=== PATIENT | male | born 1930 | race Caucasian/White ===

== ENCOUNTER 2018-01-08 09:45 | Inpatient (IN) | payer MEDICARE ==
--- NOTE | 2018-01-04 11:19 | HP ---
HISTORY OF PRESENT ILLNESS: Wyatt Bettencourt is an 87-year-old male patient who lives alone. He is ambula tory with a walker. He is known to have a cardiomyopathy with a 25% ejection fraction. He is on Rehana bo. He is followed by Dr. Fede Sherman, Cardiology. Dr. Fede Sherman saw him just 4-5 weeks ago. I personally talked to Dr. Fede Sherman and patient is cleared for surgery without additional cardiac e valuation for repair of his left inguinal hernia repair with mesh. The patient has had 2 prior lapar otomies. The plan is due to his poor mobility, the patient is planned to be admitted postoperatively and may transition arrangements for him to stay in a swing bed in [place] to help him with his mobi lity and convalescence after his left inguinal hernia repair. The patient understands risks and bene fits of procedure, infection, bleeding, reoperation and consents. He has recently acquired this geoffrey ia and it is bothersome to him. He desires repair. He will hold his Eliquis for 3 days prior and re sume it 2 days afterwards. MEDICATIONS: Eliquis 2.5 mg b.i.d., aspirin 81 mg a day, carvedilol 12.5 mg 1/2 orally twice a day, benazepril 5 mg a day, furosemide 40 mg a day, Klor-Con 8 mEq a day, digoxin 0.125 mg a day, atorvast atin 40 mg a day, Co-Q10 daily, finasteride 5 mg a day, multivitamins daily, acetaminophen as needed. PAST MEDICAL HISTORY: Hypertension, gastroesophageal reflux disease, dyslipidemia, BPH followed Dr. Haji, osteoporosis, history of cardiomyopathy with a 25% ejection fraction. Cardiology discussion as above. He has had a coronary stent, but no evidence of ischemic disease and is cleared by Cardiol ogy for the procedure. Environmental allergies. PAST SURGICAL HISTORY: TURP, cardiac stent, left hip ORIF. 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 He had a subsequent laparotomy for a bowel resection, probably from obstructive process. Subsequently, he has an incisi onal hernia about the midline laparotomy scar between the umbilicus and xiphoid. FAMILY HISTORY: Father 76 years of age, coronary disease. Mother of breast cancer. REVIEW OF SYSTEMS: Ten point noncontributory. The patient is followed by Dr. Eisenberg, primary care and Dr. Fede Sherman, Cardiology He is on Eli is. PHYSICAL EXAMINATION: VITAL SIGNS: Weight 178 pounds, 68 inches, 167/70, heart rate 65, 98.3 degrees. HEENT: Unremarkable. LUNGS: Clear to auscultation. No wheezing. CARDIAC: No murmur. ABDOMEN: Soft, nondistended. EXTREMITIES: Unremarkable. : Testicles normal. On standing right groin without hernia. Left inguinal hernia present on Vals steven and on standing. ASSESSMENT AND PLAN: 1. Left inguinal hernia, symptomatic. Desires repair. We will plan repair using mesh. We will adm it him postoperatively for arrangement to transfer, transition to a swing bed in [place]. The patie nt understands risks, benefits, and consents. 2. Other medical problems as noted above. .
[2018-01-05 10:23] VITALS: BMI 25.4
[2018-01-08 10:42] LABS: #Basophils 0.1 thou/uL (0.0-0.2); #Eosinphils 0.1 thou/uL (0.0-0.7); #Lymphocytes 2.8 thou/uL (1.20-3.40); #Neutrophils 6.7 thou/uL (1.40-6.50); %Basophils 0.7 % (0.0-1.0); %Eosinophils 0.9 % (0.0-10.0); %Lymphocytes 25.9 % (21.0-51.0); %Monocytes 9.7 % (0.0-10.0); %Neutrophils 62.8 % (42.0-75.0); Hemoglobin 15.9 g/dL (14.0-18.0); Mean Corpuscular HGB CONC 32.9 g/dL (32.0-36.0); Mean Corpuscular Hemoglobin 32.4 pg (27.0-31.0); Mean Corpuscular Volume 98.6 fl (80.0-94.0); Mean Platelet Volume 7.7 fL (7.4-10.4); Platelet Count 287 thou/uL (130-400); RBC Distribution Width 12.2 % (11.5-14.5); Red Blood Cell (RBC) Count 4.92 mill/uL (4.70-6.10); White Blood Cell (WBC) Count 10.6 thou/uL (4.8-10.8)
--- NOTE | 2018-01-08 10:49 | RAD ---
PA AND LATERAL CHEST: History: Pre-operative evaluation. FINDINGS: The heart size is normal. The aorta is tortuous. The lungs are expanded without lobar consolidation, pneumothoraces, or pleural effusions. There are changes of degenerative changes in the spine. IMPRESSION: NO acute process. POS: [facility]
[2018-01-08 11:00] LABS: Anion Gap 12 mmol/L (10-20); BUN (Urea Nitrogen) 29 mg/dL (8.4-25.7); Calc. Creatinine Clearance 47 mL/min (70-130); Calcium 10.1 mg/dL (7.8-10.44); Carbon Dioxide 29 mmol/L (23-31); Chloride 102 mmol/L (98-107); Estimated GFR-MDRD 54; Glucose 109 mg/dL (83-110); Potassium 4.6 mmol/L (3.5-5.1); Sodium 138 mmol/L (136-145)
[2018-01-08] MEDS ORDERED: Ketorolac Tromethamine 30 MG/ML VIAL ONE (11:03)
[2018-01-08] MEDS ORDERED: CEFAZOLIN/Water 2 GM/20 ML SYRINGE ONE (11:03)
[2018-01-08] MEDS ORDERED: Fentanyl 100 MCG/2 ML VIAL ONE (12:03)
[2018-01-08] MEDS ORDERED: Bupivacaine HCl 0.5%/Epinephrine 1:200,000/PF 30 ml Vial ONE (12:19)
[2018-01-08] MEDS ORDERED: Lidocaine 2% 10 ML INJ ONE (12:20)
[2018-01-08] MEDS ORDERED: Dextrose 50% Abboject 50 ML SYRINGE SLOW IVP PRN ×2 (13:20→13:21)
[2018-01-08] MEDS ORDERED: Dextrose 5% in Water 1,000 ML IV PRN ×2 (13:20→13:21)
[2018-01-08] MEDS ORDERED: hydrALAZINE 20 MG/ML VIAL SLOW IVP PRN (13:21)
[2018-01-08] MEDS ORDERED: traMADol HCl 50 MG TAB PO PRN ×2 (13:23)
[2018-01-08] MEDS ORDERED: HYDROmorphone 2 MG/ML VIAL SLOW IVP PRN (13:34)
[2018-01-08] MEDS ORDERED: Promethazine HCl 25 MG/ML VIAL SLOW IVP PRN (13:34)
[2018-01-08] MEDS ORDERED: Ondansetron HCl/PF 4 MG/2 ML Vial IVP PRN (13:34)
[2018-01-08] MEDS ORDERED: Morphine Sulfate 2 MG/ML SYRINGE SLOW IVP PRN (13:34)
[2018-01-08] MEDS ORDERED: Meperidine HCl/PF 25 MG/ML VIAL SLOW IVP PRN (13:34)
--- NOTE | 2018-01-08 13:34 | OP ---
DATE OF PROCEDURE: 01/08/2018 PREOPERATIVE DIAGNOSES: Left inguinal hernia, cardiomyopathy. POSTOPERATIVE DIAGNOSES: Left inguinal hernia, cardiomyopathy. PROCEDURE: Left inguinal hernia repair, PHS mesh indirect hernia. SURGEON: Dr. Noe Garcia ANESTHESIA: Intravenous sedation, local 0.5% Marcaine with epinephrine 30 mL mixed with 2% Xylocaine , 10 mL total volume mixture used. ESTIMATED BLOOD LOSS: Less than 10 mL. FINDINGS: Indirect left inguinal hernia. PROCEDURE IN DETAIL: The patient was taken to the operating room where under intravenous sedation, a bdomen and groin clipped of hair, prepared with ChloraPrep, draped in routine fashion. Ioban was use d. Local anesthetic mixture infiltrated in the skin and subcutaneous tissue for ilioinguinal nerve b lock and incision made in left groin, carried down skin and subcutaneous tissue to the external obliq ue, identifying the external ring, incising the external oblique and the rectus fibers, opening the i nguinal canal and dissecting the cord structures free and surrounded with a [place] drain. Cremaster ic fibers taken down with the cautery. Ilioinguinal nerve identified and divided using the cautery. Hernia sac identified, dissected free, opened under direct visualization, high ligation of the herni a sac performed with 0 Nurolon suture pursestring and stump of the hernia sac excised. To the stump of the hernia sac, underlay portion of the PHS mesh secured with 0 Nurolon. Underlay portion placed in the preperitoneal space. Onlay portion placed in the inguinal canal and slit made in the mesh lat erally to accommodate the cord structures and a synthetic internal ring created approximating the mes h laterally to Poupart's ligament and mesh inferiorly to Renan's ligament. Cord structures returned to anatomic position. External oblique closed with continuous suture of 3-0 Monocryl, Camper's with continuous suture of 3-0 Monocryl, skin with subdermal 4-0 Monocryl and DermaGlue applied. Local an esthetic infiltrated in the skin and subcutaneous tissue and in the space of the inguinal canal below Camper's fascia. The patient tolerated the procedure well.
[2018-01-08] MEDS ORDERED: Lidocaine 1% PF 5 ML VIAL ONE (15:24)
[2018-01-08] MEDS ORDERED: PROPOFOL 200 MG/20 ML VIAL ONE (15:24)
[2018-01-08] MEDS ORDERED: Diabetic Tussin 200 MG/10 ML UDCUP PO PRN (15:52)
[2018-01-08] MEDS ORDERED: Loperamide HCl 2 MG CAP PO PRN (15:52)
[2018-01-08] MEDS ORDERED: Zolpidem Tartrate 5 MG TAB PO PRN (15:52)
[2018-01-08] MEDS ORDERED: Ondansetron ODT 4 MG TAB PO PRN (15:52)
[2018-01-08] MEDS ORDERED: Sodium Chloride 0.65% Nasal 44 ML BOT EA NARE PRN (15:52)
[2018-01-08] MEDS ORDERED: Ondansetron PF 4 MG/2 ML Vial IVP PRN (15:52)
[2018-01-08] MEDS ORDERED: Chloraseptic Spray 180 ml Bottle PO PRN (15:52)
[2018-01-08] MEDS ORDERED: Loratadine 10 MG TAB PO PRN (15:52)
[2018-01-08] MEDS ORDERED: Senokot 8.6 MG TAB PO PRN (15:52)
[2018-01-08] MEDS ORDERED: Artificial Tear Sol 15 ML BOT EA EYE PRN (15:52)
[2018-01-08] MEDS ORDERED: Mag-Al 1200 mg/1200 mg/30 ML UDCUP PO PRN (15:52)
[2018-01-08] MEDS ORDERED: Eucerin (Mineral Oil/Petrolatum,White) 30 gm Jar TOP PRN (15:52)
[2018-01-08] MEDS ORDERED: Milk Of Magnesia 30 ML UDCUP PO PRN (15:52)
--- NOTE | 2018-01-08 19:15 | CON ---
DATE OF CONSULTATION: 01/08/2018 PRIMARY CARE PHYSICIAN: Dr. Cassia Eisenberg. PRIMARY ATTENDING: Dr. Noe Garcia. REASON FOR CONSULTATION: Medical comanagement. HISTORY OF PRESENT ILLNESS: An 87-year-old male who has multiple medical problems including systolic heart failure, atrial fibrillation, who was electively admitted by Dr. Garcia today for repair of right inguinal hernia, which was done earlier today without any immediate complication. Postoperatively, the patient was at surgical floor and we were consulted for medical comanagement. This patient was seen and examined at bedside. He does not have any complaint. He was hungry and he was asking me for food. This patient denies any pain. He does not have any chest pain, palpitation, shortness of breath. He is on room air. He does not have any constipation, diarrhea, or abdominal distention. He denies any urinary tract infection symptoms. He denies any fever, chills, or any flu-like symptoms. He denies any orthopnea, PND or leg swelling. 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 PAST SURGICAL HISTORY: TURP, colectomy, status post left inguinal hernia repair by Dr. Garcia today, cardiac catheterization with stent placement by Dr. Sherman, left hip open reduction internal fixation. 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 Subsequently, he had laparotomy for bowel resection. PAST PSYCHIATRIC HISTORY: Reviewed and negative. FAMILY HISTORY: Father by age of 76 from heart disease. Mother from breast cancer. SOCIAL HISTORY: No history of tobacco, alcohol or drug abuse history. Lives with family. REVIEW OF SYSTEMS: The following complete review of systems was negative, unless otherwise mentioned in the HPI or below: Constitutional: Weight loss or gain, ability to conduct usual activities. Skin: Rash, itching. Eyes: Double vision, pain. ENT/Mouth: Nose bleeding, neck stiffness, pain, tenderness. Cardiovascular: Palpitations, dyspnea on exertion, orthopnea. Respiratory: Shortness of breath, wheezing, cough, hemoptysis, fever or night sweats. Gastrointestinal: Poor appetite, abdominal pain, heartburn, nausea, vomiting, constipation, or diarrhea. Genitourinary: Urgency, frequency, dysuria, nocturia. Musculoskeletal: Pain, swelling. Neurologic/Psychiatric: Anxiety, depression. Allergy/Immunologic: Skin rash, bleeding tendency. All review of systems reviewed with the patient and negative except as mentioned in the HPI. ALLERGIES: No known drug allergy. CURRENT HOME MEDICATIONS: Aspirin 81 mg p.o. daily, Eliquis 2.5 mg p.o. b.i.d. , Lipitor 40 mg p.o. at bedtime, Lotensin 5 mg p.o. daily, Coreg 6.25 mg p.o. b.i.d., digoxin 0.125 mg p.o. daily, Proscar 5 mg p.o. daily, Lasix 40 mg p.o. daily, multivitamin 1 tablet p.o. daily, potassium chloride 8 mEq p.o. daily, Coenzyme Q10 of 100 mg p.o. daily. HOSPITAL COURSE: Reviewed. PHYSICAL EXAMINATION: VITAL SIGNS: Currently, temperature 98.0, pulse 57, respiratory rate 16, saturation 99% on room air, blood pressure 151/76, weight 175 pound. GENERAL: The patient is currently alert, awake, in no obvious acute distress. HEAD: Normocephalic, atraumatic. EYES: Pupils are round, reactive to light. Extraocular muscle intact. ENT: Oropharynx within normal limits. Moist mucous membranes, no oral lesion, no pharyngeal erythema, no exudate. NECK: Supple, no JVD, no thyromegaly, no carotid bruit. LUNGS: Clear to auscultation without any rhonchi or rales. CARDIAC: S1, S2 appears irregular. No murmur, no gallop, no rub. ABDOMEN: The patient does have surgical site in left lower quadrant at hernia site, which appears clean and healthy. EXTREMITIES: No edema. Good peripheral pulsation. SKIN: No skin rash. HEMATOLOGIC: No lymphadenopathy. PSYCHIATRIC: Normal affect. SIGNIFICANT LABORATORY DATA AND IMAGING: CBC: WBC 10.6, hemoglobin 15.9, platelet 287. BMP: Sodium 138, potassium 4.6, chloride 102, carbon dioxide 29 , anion gap 12, BUN 29, creatinine 1.27, glucose 109, calcium 10.1. Chest x- ray based on my review, no acute cardiopulmonary process. Old medical record reviewed. ASSESSMENT AND PLAN: IMPRESSION: 1. Status post left inguinal hernia repair. The patient is doing very well. Diet can be started. Postoperative care as per primary team. 2. Chronic systolic heart failure. The patient is currently euvolemic. He is on room air. He does not have any orthopnea. Does not have any edema. We will continue patient's home medication with Lasix 40 mg p.o. daily, Coreg 6.25 mg p.o. b.i.d., benazepril 5 mg p.o. daily. 3. Dyslipidemia. Continue Lipitor 40 mg p.o. at bedtime. 4. Coronary artery disease. Continue aspirin 81 mg p.o. daily along with beta- michael, MAXX inhibitor and statin therapy. The patient does not have any angina at this point. 5. Atrial fibrillation, currently rate controlled. Continue Coreg 6.25 mg p.o. b.i.d., digoxin 0.125 mg p.o. daily. The patient is currently on Lovenox 40 mg subcutaneously daily, but from tomorrow if surgeon is okay, then the patient can be kept on Eliquis 2.5 mg p.o. b.i.d. for chronic anticoagulation. 6. Benign enlargement of prostate. Continue Proscar 5 mg p.o. daily. 7. Chronic kidney disease, stage 3. Monitor renal function. 8. Deep venous thrombosis prophylaxis. Patient is currently on Lovenox 40 mg subcutaneously daily. 9. Gastrointestinal prophylaxis. Pepcid 20 mg p.o. daily. 10. Code status: The patient is FULL CODE. Patient's son is surrogate decision maker. Disposition plan based on clinical course. We are expecting the patient will be discharged in the next 24-48 hours. Thank you for the consult. We will follow up with you while in hospital. HEBER
[2018-01-08] MEDS: Carvedilol 6.25 MG TAB PO SCH (20:46)
[2018-01-08] MEDS: Acetaminophen 500 MG TAB PO PRN (20:47)
[2018-01-08] MEDS: Atorvastatin Calcium 40 MG TAB PO SCH (20:47)
[2018-01-08] MEDS ORDERED: Enoxaparin Sodium 40 MG/0.4 ML SYRINGE SC SCH (21:00)
[2018-01-09] MEDS: Acetaminophen 500 MG TAB PO PRN ×3 (02:36→20:31)
--- NOTE | 2018-01-09 07:19 | EKG ---
Test Reason : PREOP Blood Pressure : / mmHG Vent. Rate : 070 BPM Atrial Rate : 117 BPM P-R Int : 000 ms QRS Dur : 130 ms QT Int : 390 ms P-R-T Axes : 000 004 216 degrees QTc Int : 421 ms Atrial fibrillation Non-specific intra-ventricular conduction block Inferior infarct , age undetermined Cannot rule out Anterior infarct , age undetermined T wave abnormality, consider lateral ischemia or digitalis effect Abnormal ECG When compared with ECG of 19-MAR-2017 20:32, Minimal criteria for Anterior infarct are now Present No significant change was found Confirmed by DR. Linda CASPER ([id number]) on 01/09/2018 7:19:19 AM Referred By: BETO Confirmed By:DR. Linda CASPER
[2018-01-09] MEDS ORDERED: Apixaban 2.5 MG TAB PO SCH (09:00)
[2018-01-09] MEDS: Aspirin 81 mg Enteric Coated Tablet PO SCH (09:09)
[2018-01-09] MEDS: Famotidine 20 MG TAB PO SCH (09:11)
[2018-01-09] MEDS: Carvedilol 6.25 MG TAB PO SCH ×2 (09:11→20:32)
[2018-01-09] MEDS: Finasteride 5 MG TAB PO SCH (09:12)
[2018-01-09] MEDS: Ubidecarenone 50 MG CAP PO SCH (09:12)
[2018-01-09] MEDS: Polyethylene Glycol 3350 17 GM Packet PO SCH (09:12)
[2018-01-09] MEDS: Furosemide 40 MG TAB PO SCH (09:12)
[2018-01-09] MEDS: Multivit, Therapeutic 1 TAB PO SCH (09:12)
[2018-01-09] MEDS: Ibuprofen 600 MG TAB PO PRN (09:12)
[2018-01-09] MEDS: Potassium Chloride 8 MEQ TAB PO SCH (09:13)
[2018-01-09] MEDS: Digoxin 0.125 MG TAB PO SCH (09:15)
[2018-01-09] MEDS: Atorvastatin Calcium 40 MG TAB PO SCH (20:31)
[2018-01-09] MEDS ORDERED: Enoxaparin Sodium 40 MG/0.4 ML SYRINGE SC SCH (21:00)
--- NOTE | 2018-01-09 22:23 | PDOC.PN ---
- Subjective Encounter Start Date: 01/09/18 Encounter Start Time: 16:20 Patient seen and examined for med mngt. No new complaints. No overnight events. No CP/SOB/palpitations. - Objective Resuscitation Status: Resuscitation Status FULL:Full Resuscitation MAR Reviewed: Yes Vital Signs & Weight: Vital Signs (12 hours) Temp Pulse Resp BP BP BP Pulse Ox 01/09/18 20:32 161/80 H 01/09/18 20:00 99.0 F 66 18 161/80 H 95 01/09/18 12:39 98.2 F 57 L 16 130/64 98 Weight Weight 175 lb I&O: 01/08/18 01/09/18 01/10/18 06:59 06:59 06:59 Intake Total 240 1360 Output Total 650 1600 Balance -410 -240 Result Diagrams: 01/08/18 10:33 01/08/18 10:33 Phys Exam - Physical Examination Constitutional: NAD Respiratory: no wheezing, no rhonchi Cardiovascular: no rub, irregular Gastrointestinal: soft, non-tender, positive bowel sounds Musculoskeletal: no edema Neurological: moves all 4 limbs Dx/Plan - Plan DVT proph w/SCDs IMPRESSION: 1. CAD 2. Chronic Afib - rate controlled 3. Chronic systolic heart failure - compensated 4. BPH 5. CKD 3 6. HTN PLAN: * Cont Coreg/digoxin for rate control * Eliquis scheduled to start in AM * Cont current meds as below * DC to Rehab when accepted. Review of Systems - Review of Systems Respiratory: negative: Cough, Dry, Shortness of Breath, Hemoptysis, SOB with Excertion, Pleuritic Pain, Sputum, Wheezing Cardiovascular: negative: chest pain, palpitations, orthopnea, paroxysmal nocturnal dyspnea, edema, light headedness, other - Medications/Allergies Allergies/Adverse Reactions: Allergies Allergy/AdvReac Type Severity Reaction Status Date / Time No Known Drug Allergies Allergy Verified 01/05/18 10:24 Medications: Current Medications Acetaminophen (Tylenol) 1,000 mg PO Q6H PRN PRN Reason: Mild Pain (1-3) Last Admin: 01/09/18 20:31 Dose: 1,000 mg Al Hydroxide/Mg Hydroxide (Maalox) 15 ml PO Q4H PRN PRN Reason: Heartburn or Indigestion Apixaban (Eliquis) 2.5 mg PO BID DAL[facility]A Artificial Tears (Tears Renewed 15ml Bottle) 0 drop EA EYE PRN PRN PRN Reason: Dry Eyes Aspirin (Ecotrin) 81 mg PO DAILY [facility] Last Admin: 01/09/18 09:09 Dose: 81 mg Atorvastatin Calcium (Lipitor) 40 mg PO HS [facility] Last Admin: 01/09/18 20:31 Dose: 40 mg Benazepril HCl (Lotensin) 5 mg PO DAILY [facility] Last Admin: 01/09/18 09:09 Dose: 5 mg Carvedilol (Coreg) 6.25 mg PO BID [facility] Last Admin: 01/09/18 20:32 Dose: 6.25 mg Coenzyme Q10 (Coenzyme Q10) 100 mg PO DAILY [facility] Last Admin: 01/09/18 09:12 Dose: 100 mg Dextrose/Water (Dextrose 50%) 25 gm SLOW IVP PRN PRN PRN Reason: Hypoglycemia Digoxin (Lanoxin) 0.125 mg PO DAILY [facility] Last Admin: 01/09/18 09:15 Dose: 0.125 mg Famotidine (Pepcid) 20 mg PO DAILY [facility] Last Admin: 01/09/18 09:11 Dose: 20 mg Finasteride (Proscar) 5 mg PO DAILY [facility] Last Admin: 01/09/18 09:12 Dose: 5 mg Furosemide (Lasix) 40 mg PO QAM [facility] Last Admin: 01/09/18 09:12 Dose: 40 mg Glucagon (Glucagon) 1 mg IM PRN PRN PRN Reason: Hypoglycemia Guaifenesin (Robitussin Sf) 200 mg PO Q4H PRN PRN Reason: Cough Hydralazine HCl (Apresoline) 10 mg SLOW IVP Q4H PRN PRN Reason: SBP > 170 or DBP > 100 Dextrose/Water (D5w) 1,000 mls @ 0 mls/hr IV .Q0M PRN; As Directed PRN Reason: Hypoglycemia Ibuprofen (Motrin) 600 mg PO Q6H PRN PRN Reason: Pain Last Admin: 01/09/18 09:12 Dose: 600 mg Loperamide HCl (Imodium) 2 mg PO PRN PRN PRN Reason: Diarrhea/Loose Stools Loratadine (Claritin) 10 mg PO DAILYPRN PRN PRN Reason: Sinus Symptoms Magnesium Hydroxide (Milk Of Magnesium) 30 ml PO DAILYPRN PRN PRN Reason: Constipation Mineral Oil/White Petrolatum (Eucerin Cream) 0 gm TOP BIDPRN PRN PRN Reason: Dry Skin Multivitamins (Theragran) 1 tab PO DAILY [facility] Last Admin: 01/09/18 09:12 Dose: 1 tab Ondansetron HCl (Zofran Odt) 4 mg PO Q6H PRN PRN Reason: Nausea/Vomiting Ondansetron HCl (Zofran) 4 mg IVP Q6H PRN PRN Reason: Nausea/Vomiting Phenol (Chloraseptic [facility] 180 Ml Bot) 0 ml PO PRN PRN PRN Reason: Sore Throat Polyethylene Glycol (Miralax) 17 gm PO DAILY [facility] Last Admin: 01/09/18 09:12 Dose: 17 gm Potassium Chloride (Slow-K 8 Meq) 8 meq PO DAILY [facility] Last Admin: 01/09/18 09:13 Dose: 8 meq Senna (Senokot) 2 tab PO HSPRN PRN PRN Reason: Constipation Sodium Chloride (Flush - Normal Saline) 10 ml IVF PRN PRN PRN Reason: Saline Flush Sodium Chloride (Flush - Normal Saline) 10 ml IVF PRN PRN PRN Reason: Saline Flush Sodium Chloride (Treasure Nasal [facility] 0.65%) 0 ml EA NARE QIDPRN PRN PRN Reason: Nasal Congestion Tramadol HCl (Ultram) 50 mg PO Q6H PRN PRN Reason: Moderate Pain (4-6) Tramadol HCl (Ultram) 100 mg PO Q6H PRN PRN Reason: Severe Pain (7-10) Zolpidem Tartrate (Ambien) 5 mg PO HSPRN PRN PRN Reason: Insomnia
--- NOTE | 2018-01-09 22:25 | PRG ---
DATE OF SERVICE: 01/09/2018 SUBJECTIVE: Mr. Bettencourt is feeling okay. He has been getting up and walking in the room. He was acce pted to rehab. His incision is clean. He has a little bit of swelling, but no hematoma. Urine outp ut was 650 and his vital signs are good. ASSESSMENT: Doing well. Status post left inguinal hernia repair. He is currently just on prophylac tic Lovenox, but we will start his Eliquis tomorrow. He has been accepted to rehab and will likely g o there tomorrow.
[2018-01-10] MEDS: Ibuprofen 600 MG TAB PO PRN (00:01)
[2018-01-10] MEDS: Aspirin 81 mg Enteric Coated Tablet PO SCH (08:39)
[2018-01-10] MEDS: Carvedilol 6.25 MG TAB PO SCH (08:40)
[2018-01-10] MEDS: Ubidecarenone 50 MG CAP PO SCH (08:40)
[2018-01-10] MEDS: Famotidine 20 MG TAB PO SCH (08:40)
[2018-01-10] MEDS: Finasteride 5 MG TAB PO SCH (08:41)
[2018-01-10] MEDS: Potassium Chloride 8 MEQ TAB PO SCH (08:41)
[2018-01-10] MEDS: Multivit, Therapeutic 1 TAB PO SCH (08:41)
[2018-01-10] MEDS: Furosemide 40 MG TAB PO SCH (08:41)
[2018-01-10] MEDS: Polyethylene Glycol 3350 17 GM Packet PO SCH (08:42)
[2018-01-10 08:44] VITALS: BP 156/88
[2018-01-10] MEDS: Digoxin 0.125 MG TAB PO SCH (08:46)
[2018-01-10 08:52] VITALS: TEMP 98.3
[2018-01-10] MEDS ORDERED: Apixaban 2.5 MG TAB PO SCH (09:00)
--- NOTE | 2018-01-11 15:45 | DIS ---
DATE OF ADMISSION: 01/02/2018 DATE OF DISCHARGE: 01/09/2018 DISCHARGE DIAGNOSES: Left inguinal hernia and cardiomyopathy. PROCEDURES: Left inguinal hernia repair with PHS mesh. HISTORY: The patient lives alone and his family is out of town and the patient was kept postoperativ nuria to observe. He is not able to care for himself at home. Arrangements were made for him to go to a swing bed for convalescence from this operation. Hospitalist consult made for associated medical problems. The patient is followed by Dr. Fede Sherman, Cardiology, having seen him 4 or 5 weeks ago, personal discusssion to clear him for some surgery without additional cardiac evaluation. The patien t has had two prior laparotomies, had limited mobility. The patient held his Eliquis for 3 days prio r to this operation. He has a past history of hypertension, GERD, dyslipidemia, BPH, osteoporosis, c ardiomyopathy, 25% ejection fraction, history of coronary stent. No history of myocardial infarction . Patient admitted with hernia repair observed until he could be transferred to a swing bed, transfe rred to resume home medications, resume his anticoagulation. We will follow up with me in 2-3 weeks.
== END 2018-01-10 11:14 | DRG 351 ==
LOC: SDC 09:45 → SURG B 13:21
PROVIDERS: ADMIT Specialist; ATTEND Specialist
PROC: 0YU60JZ Supplement Left Inguinal Region with Synthetic Substitute, Open Approach (ICD-10-PCS; principal; 2018-01-08)
DX: K40.90 Unilateral inguinal hernia, without obstruction or gangrene, not specified as recurrent (principal); I42.9 Cardiomyopathy, unspecified; I50.22 Chronic systolic (congestive) heart failure; I13.0 Hypertensive heart and chronic kidney disease with heart failure and stage 1 through stage 4 chronic kidney disease, or unspecified chronic kidney disease; I48.2 Chronic atrial fibrillation; K21.9 Gastro-esophageal reflux disease without esophagitis; N18.3 Chronic kidney disease, stage 3 (moderate); I25.10 Atherosclerotic heart disease of native coronary artery without angina pectoris; E78.5 Hyperlipidemia, unspecified; N40.0 Benign prostatic hyperplasia without lower urinary tract symptoms; M81.0 Age-related osteoporosis without current pathological fracture; Z90.81 Acquired absence of spleen; Z90.49 Acquired absence of other specified parts of digestive tract; Z95.5 Presence of coronary angioplasty implant and graft
CPT/HCPCS: 36415; 71046; 80048; 85025; 93005; 93010; C1781; G8978-GP-CL; G8979-GP-CJ; G8987-GO-CK; G8988-GO-CI; J0131; J0670; J1650; J1885; J2001; J2704; J3010

== ENCOUNTER 2018-11-24 18:15 | Observation (INO) | payer MEDICARE ==
--- NOTE | 2018-11-24 18:51 | RAD ---
AP VIEW PELVIS 11/24/18 HISTORY: Fall. Right sided hematoma. AP view pelvis is obtained on 11/24/18. COMPARISON: Comparison made to a previous exam from 09/28/18. AP view pelvis demonstrates a left hip arthroplasty. The pelvis is unremarkable. No evidence of pelvi c fractures, subluxations or bony lesions seen. IMPRESSION: No evidence of acute pelvic fractures. POS: [facility]
--- NOTE | 2018-11-24 18:56 | RAD ---
TWO VIEWS RIGHT HIP: 11/24/18 HISTORY: Fall. Right hip hematoma. AP and frogleg views right hip is obtained on 11/24/18. COMPARISON: Not available. Two views right hip demonstrate no evidence of right hip fractures, subluxations or bony lesions. IMPRESSION: Normal two views right hip. POS: [facility]
--- NOTE | 2018-11-24 18:58 | RAD ---
TWO VIEWS RIGHT ELBOW: 11/24/18 HISTORY: Fall with right elbow pain and hematoma. AP and lateral views of the right elbow is obtained. No evidence of right elbow fractures, subluxations or bony lesions seen. IMPRESSION: Normal two views right elbow. POS: [facility]
[2018-11-24 19:02] LABS: #Basophils 0.1 thou/uL (0.0-0.2); #Eosinphils 0.1 thou/uL (0.0-0.7); #Monocytes 0.8 thou/uL (0.11-0.59); #Neutrophils 8.2 thou/uL (1.40-6.50); %Basophils 0.5 % (0.0-1.0); %Eosinophils 0.5 % (0.0-10.0); %Lymphocytes 17.8 % (21.0-51.0); %Monocytes 7.5 % (0.0-10.0); %Neutrophils 73.8 % (42.0-75.0); Hemoglobin 14.4 g/dL (14.0-18.0); Mean Corpuscular HGB CONC 32.5 g/dL (32.0-36.0); Mean Corpuscular Hemoglobin 32.2 pg (27.0-31.0); Mean Corpuscular Volume 98.9 fL (78.0-98.0); Mean Platelet Volume 8.2 fL (7.4-10.4); Platelet Count 285 thou/uL (130-400); RBC Distribution Width 12.4 % (11.5-14.5); Red Blood Cell (RBC) Count 4.48 mill/uL (4.70-6.10); White Blood Cell (WBC) Count 11.2 thou/uL (4.8-10.8)
[2018-11-24 19:07] LABS: INR-International Normal Ratio 1.3; PTT 35.6 SEC (22.9-36.1); Prothrombin Time 16.1 SEC (12.0-14.7)
[2018-11-24 19:23] LABS: ALT (SGPT) 13 U/L (8-55); AST (SGOT) 19 U/L (5-34); Albumin 3.8 g/dL (3.4-4.8); Alkaline Phosphatase 71 U/L (40-150); Anion Gap 14 mmol/L (10-20); BUN (Urea Nitrogen) 36 mg/dL (8.4-25.7); Bilirubin, Total 0.7 mg/dL (0.2-1.2); CK (CPK) 78 U/L (30-200); Calc. Creatinine Clearance 0 mL/min (70-130); Calcium 9.8 mg/dL (7.8-10.44); Carbon Dioxide 27 mmol/L (23-31); Chloride 103 mmol/L (98-107); Estimated GFR-MDRD 44; Globulin 3.9 g/dL (2.4-3.5); Glucose 112 mg/dL (83-110); Potassium 4.7 mmol/L (3.5-5.1); Protein, Total 7.7 g/dL (5.8-8.1); Sodium 139 mmol/L (136-145)
--- NOTE | 2018-11-24 19:24 | CT ---
CT BRAIN 11/24/18 HISTORY: Mechanical fall. Hematoma to right elbow and skin injury. Head trauma. Noncontrast enhanced CT images of the brain is obtained. There is diffuse cortical atrophy and deep white matter ischemic changes seen. Areas of lacunar infar ction seen in the left basal ganglia. A cavum septum pellucidum et vergae is present. This is an jessica omic variant. No evidence of acute intracranial abnormality seen. IMPRESSION: Cortical atrophy and deep white matter ischemic changes. No evidence of acute intracranial pathology is seen. POS: [facility]
--- NOTE | 2018-11-24 19:29 | CT ---
CT CERVICAL SPINE: 11/24/18 HISTORY: Fall with neck trauma. Hematoma to elbow. Noncontrast enhanced CT images cervical spine obtained. Images demonstrate extensive changes of spondylosis with multilevel extensive bridging osteophytes in volving the C3-4 level. 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 Extensive anterior osteo phytes also seen at the C4-5 level. 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 Changes of spondylosis seen at C6-7 and C7-T1. IMPRESSION: 1. 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 Adjacent marked changes of hypermotility and secondary spondylosis changes seen at C3-4, C4-5, C6-7 and C7-T1. No evidence o f acute cervical spine fracture seen. 2. Extensive bilateral distal common carotid artery vascular calcifications. POS: [facility]
[2018-11-24 19:45] LABS: CKMB 2.3 ng/mL (0-6.6)
--- NOTE | 2018-11-24 20:10 | PDOC.FPRHP ---
- History of Present Illness Chief Complaint: fall History of Present Illness: 88 yo male with pmh HTN, hx of CVA, CAD s/p stents, Afib on AC with Margarita presents after falling in his kitchen and pushing his life alert button. Patient was preparing dinner when he fell. "Lost my balance, didn't have my cane." No dizziness, nausea, diaphoresis, lightheadedness. Denies LOC or head trauma. Reports he fell on his back. Waited 30-40min before hitting his LifeAlert button while trying to get up on his own. Denies CP, SOB. Sees Dr Sherman, cardiology. Allergies: none PCP: Dr Eisenberg ED Course: negative imaging: xr elbow rt xr pelvis ap xr hip rt ct cervical spine wo ct brain wo - Allergies/Adverse Reactions Allergies Allergy/AdvReac Type Severity Reaction Status Date / Time No Known Drug Allergies Allergy Verified 11/24/18 23:09 - Home Medications Medication Instructions Recorded Confirmed Type Finasteride 5 mg PO DAILY 10/28/16 11/24/18 History Aspirin [Ecotrin Low Strength] 81 mg PO DAILY tab 11/01/16 11/24/18 Rx Atorvastatin Calcium [Lipitor] 40 mg PO HS 12/23/16 11/24/18 History Benazepril HCl [Lotensin] 5 mg PO DAILY 12/23/16 11/24/18 History Potassium Chloride 8 meq PO DAILY 12/23/16 11/24/18 History Carvedilol [Coreg] 6.25 mg PO BID 03/20/17 11/24/18 History Digoxin [Lanoxin] 0.125 mg PO DAILY 03/20/17 11/24/18 History Acetaminophen [Pain Relief 8Hr] 1 tablet PO QID 01/05/18 11/24/18 History Furosemide [Lasix] 20 meq PO QAM 01/05/18 11/24/18 History Multivit, Therapeutic [Theragran] 1 tab PO DAILY 01/05/18 11/24/18 History Ubidecarenone [CoQ-10] 1 tab PO DAILY 01/05/18 11/24/18 History Apixaban [Eliquis] 2.5 mg PO BID tab 01/09/18 11/24/18 Rx Famotidine [Pepcid] 20 mg PO DAILY tab 01/09/18 11/24/18 Rx Polyethylene Glycol 3350 [Miralax] 17 gm PO DAILY pk 01/09/18 11/24/18 Rx Sennosides [Senokot] 2 tab PO HSPRN PRN tab 01/09/18 11/24/18 Rx Aluminum & Magnesium Hydroxide 15 ml PO Q4HR PRN 01/10/18 11/24/18 History [Maalox] Artificial Tear Annika 15ml Bot 1 - 2 drop EA EYE ASDIR PRN 01/10/18 11/24/18 History [Tears Renewed 15ml Bottle] - History DIFFICULT TO OBTAIN 10/13 PATIENT POOR HISTORIAN PMHx: Hx of CVA, Atrial fibrillation, CKD, HFrEF (25-30% on 10/29/16), CAD s/p stents 2 -3 years ago PSHx: Appendectomy, splenectomy, cardiac stent x1 FHx: Unremarkable Social: Denies alcohol/tobacco/drug use. Lives alone with home health Specialists: [facility] - Review of Systems ROS unobtainable: other (difficult to obtain) General: reports: weight/appetite/sleep changes (reports weight loss). denies: fever/chills ENT: reports: rhinorrhea, other (denies sore throat). denies: nasal congestion Respiratory: reports: cough (patient attributes to allergies). denies: shortness of breath Cardiovascular: denies: chest pain, palpitation, edema Gastrointestinal: reports: constipation (mild). denies: nausea, vomiting, diarrhea, abdominal pain Genitourinary: denies: dysuria, other (denies hematuria) Skin: reports: other (bruising) Musculoskeletal: denies: pain, stiffness Neurological: denies: syncope, weakness - Vital signs BP: 144/93 HR: 90 RR: 20 Tmax: 98.4 Pox: 98% on RA Wt: 90.72kg - Physical Exam Constitutional: NAD, awake, alert and oriented, well developed HEENT: normocephalic and atraumatic, conjunctiva clear, normal nasal mucosa, MMM , oropharynx clear, other (poor dentition. Mandibular yonny) Neck: supple, trachea midline Heart: RRR, no murmurs/rubs/gallops, pulses present (radial) Lungs: CTAB, no respiratory distress Abdomen: soft, non-tender, bowel sounds present, no masses/distention Musculoskeletal: normal structure, normal tone Neurological: no focal deficit Skin: capillary refill <2 seconds -Skin: skin tears on right arm above and below elbow as well as on the right gluteal area Heme/Lymphatic: other (bilateral arm bruising) Psychiatric: normal mood and affect, intact recent and remote memory, other ( poor insight into medical conditions) FMR H&P: Results - Labs Result Diagrams: 11/24/18 18:54 11/25/18 04:45 Lab results: WBC 11.2 thou/uL (4.8-10.8) H 11/24/18 18:54 Hgb 14.4 g/dL (14.0-18.0) 11/24/18 18:54 Hct 44.3 % (42.0-52.0) 11/24/18 18:54 MCV 98.9 fL (78.0-98.0) H 11/24/18 18:54 Plt Count 285 thou/uL (130-400) 11/24/18 18:54 Neutrophils % 73.8 % (42.0-75.0) 11/24/18 18:54 Sodium 139 mmol/L (136-145) 11/24/18 18:54 Potassium 4.7 mmol/L (3.5-5.1) 11/24/18 18:54 Chloride 103 mmol/L (98-107) 11/24/18 18:54 Carbon Dioxide 27 mmol/L (23-31) 11/24/18 18:54 BUN 36 mg/dL (8.4-25.7) H 11/24/18 18:54 Creatinine 1.51 mg/dL (0.7-1.3) H 11/24/18 18:54 Glucose 112 mg/dL (83-110) H 11/24/18 18:54 Calcium 9.8 mg/dL (7.8-10.44) 11/24/18 18:54 Total Bilirubin 0.7 mg/dL (0.2-1.2) 11/24/18 18:54 AST 19 U/L (5-34) 11/24/18 18:54 ALT 13 U/L (8-55) 11/24/18 18:54 Alkaline Phosphatase 71 U/L (40-150) 11/24/18 18:54 Creatine Kinase 78 U/L (30-200) 11/24/18 18:54 CK-MB (CK-2) 2.3 ng/mL (0-6.6) 11/24/18 18:54 Serum Total Protein 7.7 g/dL (5.8-8.1) 11/24/18 18:54 Albumin 3.8 g/dL (3.4-4.8) 11/24/18 18:54 - EKG Interpretation EK lead EKG shows normal sinus rhythm, Rate (beats per minute): 91, with no ectopics, Conduction with, complete left bundle branch block, ST segments normal , T waves normal, [place] normal. 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 Adjacent marked changes of hypermotility and secondary spondylosis changes at C3-4, C4-5, C6-7, C7-T1. Extensie bilateral distal common carotid artery vascular calcifications. Head CT: Cortical atrophy and deep white matter ischemic changes. No acute pathology. Other Status: report reviewed by me Additional comment: Elbow: Normal 2 views Hip: Normal 2 views of right hip Pelvis: No evidence of acute pelvic fractures FMR H&P: A/P - Problem List (1) Elevated troponin Current Visit: Yes Status: Acute Code(s): R74.8 - ABNORMAL LEVELS OF OTHER SERUM ENZYMES (2) History of CVA (cerebrovascular accident) Current Visit: Yes Status: Chronic Code(s): Z86.73 - PRSNL HX OF TIA (TIA), AND CEREB INFRC W/O RESID DEFICITS (3) CAD (coronary artery disease) Current Visit: Yes Status: Chronic Code(s): I25.10 - ATHSCL HEART DISEASE OF [place] CORONARY ARTERY W/O ANG PCTRS (4) Fall Current Visit: No Status: Acute Code(s): W19.XXXA - UNSPECIFIED FALL, INITIAL ENCOUNTER Qualifiers: Encounter type: initial encounter Qualified Code(s): W19.XXXA - Unspecified fall, initial encounter (5) Atrial fibrillation with controlled ventricular response Current Visit: No Status: Chronic Code(s): I48.91 - UNSPECIFIED ATRIAL FIBRILLATION (6) CKD (chronic kidney disease) stage 3, GFR 30-59 ml/min Current Visit: No Status: Chronic Code(s): N18.3 - CHRONIC KIDNEY DISEASE, STAGE 3 (MODERATE) (7) Cardiomyopathy Current Visit: No Status: Chronic Code(s): I42.9 - CARDIOMYOPATHY, UNSPECIFIED Qualifiers: Cardiomyopathy type: unspecified Qualified Code(s): I42.9 - Cardiomyopathy , unspecified Comment: Suspect ischemic CM EF 25-30%, continue ASA, Xarelto, Simvastatin and Benazepril. (8) Essential hypertension Current Visit: No Status: Chronic Code(s): I10 - ESSENTIAL (PRIMARY) HYPERTENSION Comment: controlled (9) HFrEF (heart failure with reduced ejection fraction) Current Visit: Yes Status: Chronic Code(s): I50.20 - UNSPECIFIED SYSTOLIC ( CONGESTIVE) HEART FAILURE - Plan Elevated Troponin - Denies CP, SOB - Elevated trops on prior admission, w/u neg - Known CAD s/p stent placement. Follows with Dr Sherman - Continue to trend trops - EKG for chest pain - FLP obtained yesterday 11/24. Pt age outside ASCVD risk calc recommendations - Admit to tele EDISON on CKD3 - Continue to monitor with AM BMP HFrEF - Echo 10/29/16: EF 25-30% - HH diet - Continue home meds - Strict I&Os, daily wts, fluid restriction Afib on AC - Continue home Eliquis - Tele monitoring Hx of CVA - Uses cane to ambulate - PT/OT consulted CAD s/p stent x1 - Continue home meds - Manage as above HTN - Continue home meds Code status: FULL. Pt asked us to call son. Son did not know his code status. DVT ppx: Margarita PCP: Dr. Eisenberg FMR H&P: Upper Level - Pertinent history 88 yo male here for fall. Patient is a patient of Dr. Eisenberg. Hx of afib, stents placed. Reports he fell this evening making food in the kitchen. Denies LOC, dizziness, CP, SOB, diaphoresis. Fell on his back with no head trauma. He tried to get up for about 30 minutes before using his lifealert necklace. He lives at home with HomeHealth coming about 2-3 times a week. Next of kin, son Miguel, was called for more information. He reports the patient had been seemingly getting weaker over the past couple weeks. does provide some PT. - Pertinent findings 144/93 HR: 90 TEMP: 98.4 98% on RA RR: 20 GEN: NAD CARD: RRR, no mgr, no carotid bruits heard PULM: CTAB EXT: trace right ankle edema SKIN: skin tears on his right arm around the elbow as well as the gluteal region on the right Cr: 1.51 Trop: 0.061 Imaging reviewed, pertinent findings documented in Dr. Lyman' note. - Plan Date/Time: 11/24/182009 I, Hawk Sims DO, have evaluated this patient and agree with findings/plan as outlined by email marketing intern resident. Pertinent changes/additions are listed here. Also, I spoke with the son who is in a remote location on vacation and unable to provide documents for code status. He said he is not sure what code status is, but thinks his father is a DNR in his will, but not positive. I told him that until we were able to have the patient definitively tell us or for the son to provide documentation, he will be full code. He said to call him if anything happens until he can get to the documents. He also said we could ask the patient. The patient told us to talk to his son. #EDISON -fluids, continue to trend #indeterminate trops -history of similar event a couple years ago with no intervention -patient denies CP -EKG stable, afib -Continue to trend #Afib -stable, rate controlled -monitor on tele -continue on home meds #Hx of CVA #HTN #CAD s/p stents Addendum - Attending - Attending Attestation Date/Time: 11/25/18 4237 I personally evaluated the patient and discussed the management with Dr. Lyman /Levi. I agree with the History, Examination, Assessment and Plan documented above with any addition or exceptions noted below. Patient here with mechanical fall due to imbalance while trying to carry food without his normal ambulation assistance. He lives at home alone and only occasionally has someone check on him. He is on Eliquis and has diffuse bruising from his fall. He otherwise feels well this morning. Had mild EDISON. Telemetry showed 1 3 second pause overnight and 1 run of 4 beats of vtach. Will confirm that. Continue fluid hydration for EDISON. Trops trending down. Will discuss case with patient's PCP. Will consult therapy services at this time. Will have discussion about potential inpatient rehab and/or SNF placement due to patient safety though patient seems overall adamant about going home.
[2018-11-24] MEDS ORDERED: Aspirin 325 MG TAB ONE (20:12)
[2018-11-24] MEDS ORDERED: Senokot 8.6 MG TAB PO PRN (22:17)
[2018-11-24] MEDS ORDERED: Artificial Tears 18 DROP/0.9 ML EA EYE PRN (22:17)
[2018-11-24] MEDS ORDERED: Atorvastatin Calcium 40 MG TAB PO SCH (22:30)
[2018-11-24 22:35] LABS: Troponin I 0.091 ng/mL (< 0.028)
[2018-11-24] MEDS: Acetaminophen ER (8hr) 650 MG TAB PO PRN (22:53)
[2018-11-25 01:20] LABS: Troponin I 0.116 ng/mL (< 0.028)
--- NOTE | 2018-11-25 05:31 | PDOC.FM ---
- Subjective Subjective: Pt states his Rt sided hip/back/buttock pain is improved. No other complaints. Pt states he has had multiple falls at home. He knows he needs to use his cane/ walker, but does not always use it. Stressed importance of safety and continuing to use his walker/cane. - Objective Vital Signs & Weight: Vital Signs (12 hours) Temp Pulse Resp BP Pulse Ox 11/25/18 04:30 75 18 124/69 11/24/18 21:45 97.7 F 84 18 127/72 98 Weight Weight 79.605 kg I&O: 11/23/18 11/24/18 11/25/18 06:59 06:59 06:59 Output Total 500 Balance -500 Result Diagrams: 11/24/18 18:54 11/25/18 04:45 Phys Exam - Physical Examination Constitutional: NAD HEENT: PERRLA, moist MMs Neck: no nodes, supple Respiratory: no wheezing, clear to auscultation bilateral Cardiovascular: no significant murmur irregularly irregular rhythm Gastrointestinal: soft, non-tender, no distention Musculoskeletal: no edema, pulses present Neurological: non-focal Psychiatric: normal affect Skin: normal turgor, cap refill <2 seconds Dx/Plan (1) Fall Code(s): W19.XXXA - UNSPECIFIED FALL, INITIAL ENCOUNTER Status: Acute Qualifiers: Encounter type: initial encounter Qualified Code(s): W19.XXXA - Unspecified fall, initial encounter (2) Elevated troponin Code(s): R74.8 - ABNORMAL LEVELS OF OTHER SERUM ENZYMES Status: Acute (3) CAD (coronary artery disease) Code(s): I25.10 - ATHSCL HEART DISEASE OF [place] CORONARY ARTERY W/O ANG PCTRS Status: Chronic (4) HFrEF (heart failure with reduced ejection fraction) Code(s): I50.20 - UNSPECIFIED SYSTOLIC (CONGESTIVE) HEART FAILURE Status: Chronic (5) History of CVA (cerebrovascular accident) Code(s): Z86.73 - PRSNL HX OF TIA (TIA), AND CEREB INFRC W/O RESID DEFICITS Status: Chronic (6) Atrial fibrillation with RVR Code(s): I48.91 - UNSPECIFIED ATRIAL FIBRILLATION Status: Chronic (7) Atrial fibrillation with controlled ventricular response Code(s): I48.91 - UNSPECIFIED ATRIAL FIBRILLATION Status: Chronic (8) CKD (chronic kidney disease) stage 3, GFR 30-59 ml/min Code(s): N18.3 - CHRONIC KIDNEY DISEASE, STAGE 3 (MODERATE) Status: Chronic (9) Essential hypertension Code(s): I10 - ESSENTIAL (PRIMARY) HYPERTENSION Status: Chronic - Plan Plan: Fall -denies he hit his head -Rt hip states pain improved -All imaging has been negative for fracture of Rt elbow, Rt hip, pelvis, cervical spine -Brain CT neg Elevated Troponin - Denies CP, SOB - Elevated trops on prior admission - Known CAD s/p stent placement. Follows with Dr Lane sylvester - EKG for chest pain - FLP obtained yesterday 11/24. Pt age outside ASCVD risk calc recommendations EDISON on CKD3 - Continue to monitor with AM BMP HFrEF - Echo 10/29/16: EF 25-30% - HH diet - Continue home meds - Strict I&Os, daily wts, fluid restriction Afib on AC - Continue home Eliquis - Tele monitoring Hx of CVA - Uses cane to ambulate - PT/OT consulted CAD s/p stent x1 - Continue home meds - Manage as above HTN - Continue home meds Code status: FULL. Pt asked us to call son. Son did not know his code status. DVT ppx: Xarelto Dispo: most likely home today pending clinical status changes PCP: Dr. Eisenberg Addendum - Attending - Attending Attestation Date/Time: 11/25/18 0265 I personally evaluated the patient and discussed the management with Dr. Scott. I agree with the History, Examination, Assessment and Plan documented above with any addition or exceptions noted below. See my addendum on H&P, overall agree with above. FLuids, therapy, dispo per conversation with family and patient.
[2018-11-25 05:40] LABS: Anion Gap 12 mmol/L (10-20); BUN (Urea Nitrogen) 33 mg/dL (8.4-25.7); Calc. Creatinine Clearance 46 mL/min (70-130); Calcium 9.4 mg/dL (7.8-10.44); Carbon Dioxide 26 mmol/L (23-31); Chloride 106 mmol/L (98-107); Estimated GFR-MDRD 54; Glucose 87 mg/dL (83-110); Potassium 4.2 mmol/L (3.5-5.1); Sodium 140 mmol/L (136-145)
[2018-11-25] MEDS ORDERED: Prevnar 13-Val Conj/PF 0.5 ML SYRINGE IM ONE (09:00)
[2018-11-25] MEDS: Furosemide 20 MG TAB PO SCH ×2 (09:13→10:49)
[2018-11-25] MEDS: Carvedilol 6.25 MG TAB PO SCH ×3 (09:14→18:28)
[2018-11-25 10:36] LABS: Hemoglobin 12.5 g/dL (14.0-18.0); Platelet Count 257 thou/uL (130-400)
[2018-11-25] MEDS: Digoxin 0.125 MG TAB PO SCH (10:46)
[2018-11-25] MEDS: Famotidine 20 MG TAB PO SCH (10:46)
[2018-11-25] MEDS: Aspirin 81 mg Enteric Coated Tablet PO SCH (10:47)
[2018-11-25] MEDS: Potassium Chloride 8 MEQ TAB PO SCH (10:48)
[2018-11-25] MEDS: Finasteride 5 MG TAB PO SCH (10:48)
[2018-11-25] MEDS: Multivit, Therapeutic 1 TAB PO SCH (10:48)
[2018-11-25] MEDS: Polyethylene Glycol 3350 17 GM Packet PO SCH (10:48)
[2018-11-25] MEDS: Apixaban 2.5 MG TAB PO SCH ×2 (10:50→20:34)
[2018-11-25] MEDS: Acetaminophen ER (8hr) 650 MG TAB PO PRN ×2 (10:50→20:49)
[2018-11-25] MEDS: Atorvastatin Calcium 40 MG TAB PO SCH (20:35)
--- NOTE | 2018-11-26 05:42 | PDOC.FM ---
- Subjective Subjective: Pt having back pain this AM. Discussed possibly going to rehab placement after discharge, patient states he would go but is afraid they would not let him leave. Discussed that it would only be for short-term to increase his strength. - Objective Vital Signs & Weight: Vital Signs (12 hours) Temp Pulse Resp BP BP Pulse Ox 11/26/18 04:10 73 18 123/84 99 11/25/18 19:20 98.2 F 81 12 90/53 L 97 Weight Weight 79.197 kg I&O: 11/24/18 11/25/18 11/26/18 06:59 06:59 06:59 Intake Total 1000 Output Total 500 800 Balance -500 200 Result Diagrams: 11/25/18 10:12 11/25/18 10:12 Phys Exam - Physical Examination Constitutional: NAD HEENT: PERRLA, moist MMs Respiratory: no wheezing, clear to auscultation bilateral irregularly irregular Gastrointestinal: soft, non-tender, no distention trace pitting edema BLE Neurological: non-focal, moves all 4 limbs Psychiatric: normal affect Dx/Plan (1) Fall Code(s): W19.XXXA - UNSPECIFIED FALL, INITIAL ENCOUNTER Status: Acute Qualifiers: Encounter type: initial encounter Qualified Code(s): W19.XXXA - Unspecified fall, initial encounter (2) Elevated troponin Code(s): R74.8 - ABNORMAL LEVELS OF OTHER SERUM ENZYMES Status: Acute (3) CAD (coronary artery disease) Code(s): I25.10 - ATHSCL HEART DISEASE OF [place] CORONARY ARTERY W/O ANG PCTRS Status: Chronic (4) HFrEF (heart failure with reduced ejection fraction) Code(s): I50.20 - UNSPECIFIED SYSTOLIC (CONGESTIVE) HEART FAILURE Status: Chronic (5) History of CVA (cerebrovascular accident) Code(s): Z86.73 - PRSNL HX OF TIA (TIA), AND CEREB INFRC W/O RESID DEFICITS Status: Chronic (6) Atrial fibrillation with RVR Code(s): I48.91 - UNSPECIFIED ATRIAL FIBRILLATION Status: Chronic (7) Atrial fibrillation with controlled ventricular response Code(s): I48.91 - UNSPECIFIED ATRIAL FIBRILLATION Status: Chronic (8) CKD (chronic kidney disease) stage 3, GFR 30-59 ml/min Code(s): N18.3 - CHRONIC KIDNEY DISEASE, STAGE 3 (MODERATE) Status: Chronic (9) Essential hypertension Code(s): I10 - ESSENTIAL (PRIMARY) HYPERTENSION Status: Chronic - Plan Plan: Physical deconditioning -PT/OT to evaluate today, rehab screen -Rehab placement, home health Fall -denies he hit his head -Rt hip states pain improved -All imaging has been negative for fracture of Rt elbow, Rt hip, pelvis, cervical spine -Brain CT neg -warm/cold pack for hip pain Elevated Troponin - Denies CP, SOB - Elevated trops on prior admission - Known CAD s/p stent placement. [facility] - EKG for chest pain - FLP obtained yesterday 11/24. Pt age outside ASCVD risk calc recommendations EDISON on CKD, improving - Continue to monitor with AM BMP HFrEF - Echo 10/29/16: EF 25-30% - HH diet - Continue home meds - Strict I&Os, daily wts, fluid restriction Afib on AC - Continue home Eliquis - Tele monitoring Hx of CVA - Uses cane to ambulate - PT/OT consulted CAD s/p stent x1 - Continue home meds - Manage as above HTN - Continue home meds Code status: FULL. Pt asked us to call son. Son did not know his code status. DVT ppx: Xarelto Dispo: pending placement PCP: Dr. Eisenberg Addendum - Attending - Attending Attestation Date/Time: 11/26/18 1113 I personally evaluated the patient and discussed the management with Dr. Scott. I agree with the History, Examination, Assessment and Plan documented above with any addition or exceptions noted below. Patient overall doing well. Therapy working with him. He does not appear to be orthostatic that is resulting in his fall. Continue therapy and see if he would be a good candidate for inpatient rehab for short stay. Will update son regarding progress.
[2018-11-26] MEDS: Polyethylene Glycol 3350 17 GM Packet PO SCH (07:57)
[2018-11-26] MEDS: Famotidine 20 MG TAB PO SCH (07:57)
[2018-11-26] MEDS: Carvedilol 6.25 MG TAB PO SCH ×2 (07:58→15:54)
[2018-11-26] MEDS: Finasteride 5 MG TAB PO SCH (07:59)
[2018-11-26] MEDS: Apixaban 2.5 MG TAB PO SCH ×2 (07:59→20:15)
[2018-11-26] MEDS: Furosemide 20 MG TAB PO SCH (07:59)
[2018-11-26] MEDS: Multivit, Therapeutic 1 TAB PO SCH (07:59)
[2018-11-26] MEDS: Potassium Chloride 8 MEQ TAB PO SCH (07:59)
[2018-11-26] MEDS: Digoxin 0.125 MG TAB PO SCH (07:59)
[2018-11-26] MEDS: Aspirin 81 mg Enteric Coated Tablet PO SCH (07:59)
[2018-11-26] MEDS: Acetaminophen ER (8hr) 650 MG TAB PO PRN ×2 (08:00→15:54)
[2018-11-26 13:26] VITALS: BMI 25.0
[2018-11-26] MEDS: Atorvastatin Calcium 40 MG TAB PO SCH (20:15)
--- NOTE | 2018-11-27 06:16 | PDOC.FM ---
- Subjective Subjective: Pt states his right hip/flank area is still very painful. States it is hard to move because of the pain. Cold packs helped yesterday. Discussed continuing therapy to maintain mobility. - Objective Vital Signs & Weight: Vital Signs (12 hours) Temp Pulse Resp BP BP Pulse Ox 11/27/18 05:06 98.6 F 84 16 135/74 99 11/26/18 20:29 98.4 F 64 16 100 11/26/18 19:27 102/57 L Weight Admit Weight 79.197 kg Weight 78.88 kg I&O: 11/25/18 11/26/18 11/27/18 06:59 06:59 06:59 Intake Total 1000 1800 Output Total 916 920 1130 Balance -500 200 -1200 Result Diagrams: 11/25/18 10:12 11/25/18 10:12 Phys Exam - Physical Examination Constitutional: NAD Respiratory: no wheezing, clear to auscultation bilateral Cardiovascular: no significant murmur irregularly irregular Gastrointestinal: soft, non-tender, no distention, positive bowel sounds Musculoskeletal: no edema, pulses present Neurological: non-focal, normal sensation, moves all 4 limbs Psychiatric: normal affect, A&O x 3 Skin: normal turgor, cap refill <2 seconds Deviation from normal: Large black and blue bruising on right flank Dx/Plan (1) Fall Code(s): W19.XXXA - UNSPECIFIED FALL, INITIAL ENCOUNTER Status: Acute Qualifiers: Encounter type: initial encounter Qualified Code(s): W19.XXXA - Unspecified fall, initial encounter (2) Elevated troponin Code(s): R74.8 - ABNORMAL LEVELS OF OTHER SERUM ENZYMES Status: Acute (3) CAD (coronary artery disease) Code(s): I25.10 - ATHSCL HEART DISEASE OF [place] CORONARY ARTERY W/O ANG PCTRS Status: Chronic (4) HFrEF (heart failure with reduced ejection fraction) Code(s): I50.20 - UNSPECIFIED SYSTOLIC (CONGESTIVE) HEART FAILURE Status: Chronic (5) History of CVA (cerebrovascular accident) Code(s): Z86.73 - PRSNL HX OF TIA (TIA), AND CEREB INFRC W/O RESID DEFICITS Status: Chronic (6) Atrial fibrillation with RVR Code(s): I48.91 - UNSPECIFIED ATRIAL FIBRILLATION Status: Chronic (7) Atrial fibrillation with controlled ventricular response Code(s): I48.91 - UNSPECIFIED ATRIAL FIBRILLATION Status: Chronic (8) CKD (chronic kidney disease) stage 3, GFR 30-59 ml/min Code(s): N18.3 - CHRONIC KIDNEY DISEASE, STAGE 3 (MODERATE) Status: Chronic (9) Essential hypertension Code(s): I10 - ESSENTIAL (PRIMARY) HYPERTENSION Status: Chronic - Plan Plan: Physical deconditioning -PT/OT consulted, rehab screen -Rehab placement, home health Fall -denies he hit his head -Rt hip more painful this AM, continue acetaminophen PRN for pain -All imaging has been negative for fracture of Rt elbow, Rt hip, pelvis, cervical spine -Brain CT neg -continue cold packs for hip pain Elevated Troponin - Denies CP, SOB - Elevated trops on prior admission - Known CAD s/p stent placement. [facility] E[facility] for chest pain - FLP obtained yesterday 11/24. Pt age outside ASCVD risk calc recommendations EDISON on CKD, improving - Continue to monitor with AM BMP HFrEF - Echo 10/29/16: EF 25-30% - HH diet - Continue home meds - Strict I&Os, daily wts, fluid restriction Afib on AC - Continue home Eliquis - Tele monitoring Hx of CVA - Uses cane to ambulate - PT/OT consulted CAD s/p stent x1 - Continue home meds - Manage as above HTN - Continue home meds Code status: FULL. DVT ppx: Xarelto Dispo: pending placement PCP: Dr. Eisenberg Addendum - Attending - Attending Attestation Date/Time: 11/27/18 0912 I personally evaluated the patient and discussed the management with Dr. Scott. I agree with the History, Examination, Assessment and Plan documented above with any addition or exceptions noted below. Patient doing well and denies complaints. Continue to work with therapy and work on acceptance/placement in some short term rehab to help prevent future falls and re-admissions.
[2018-11-27] MEDS: Apixaban 2.5 MG TAB PO SCH ×2 (08:22→20:42)
[2018-11-27] MEDS: Acetaminophen ER (8hr) 650 MG TAB PO PRN (08:23)
[2018-11-27] MEDS: Famotidine 20 MG TAB PO SCH (08:23)
[2018-11-27] MEDS: Digoxin 0.125 MG TAB PO SCH (08:23)
[2018-11-27] MEDS: Finasteride 5 MG TAB PO SCH (08:23)
[2018-11-27] MEDS: Potassium Chloride 8 MEQ TAB PO SCH (08:23)
[2018-11-27] MEDS: Multivit, Therapeutic 1 TAB PO SCH (08:23)
[2018-11-27] MEDS: Furosemide 20 MG TAB PO SCH (08:24)
[2018-11-27] MEDS: Carvedilol 6.25 MG TAB PO SCH ×2 (08:24→16:23)
[2018-11-27] MEDS: Aspirin 81 mg Enteric Coated Tablet PO SCH (08:24)
[2018-11-27] MEDS: Polyethylene Glycol 3350 17 GM Packet PO SCH (08:25)
[2018-11-27] MEDS ORDERED: Ketorolac Tromethamine 30 MG/ML VIAL IVP SCH (09:30)
[2018-11-27] MEDS: Atorvastatin Calcium 40 MG TAB PO SCH (20:42)
--- NOTE | 2018-11-28 07:06 | PDOC.FM ---
- Subjective Subjective: Patient feels well this AM, still sore on right hip/back, states that the pain comes and goes and he feels stiff. Discussed further benefits/risks of continuing anti-coagulation with eliquis, patient has decided to discontinue eliquis. Discussed that he will remain on the aspirin. - Objective Vital Signs & Weight: Vital Signs (12 hours) Temp Pulse Resp BP Pulse Ox 11/28/18 03:55 98.1 F 83 16 108/60 97 11/27/18 23:54 99.2 F 76 15 102/55 L 95 11/27/18 19:43 98.2 F 62 18 132/65 97 Weight Admit Weight 79.197 kg Weight 79.878 kg I&O: 11/26/18 11/27/18 11/28/18 06:59 06:59 06:59 Intake Total 1000 1800 2040 Output Total 800 3000 2175 Balance 200 -1200 -135 Result Diagrams: 11/25/18 10:12 11/25/18 10:12 Phys Exam - Physical Examination Constitutional: NAD HEENT: PERRLA, moist MMs Respiratory: no wheezing, clear to auscultation bilateral Cardiovascular: no significant murmur irregularly irregular rhythm Gastrointestinal: soft, non-tender, no distention, positive bowel sounds Musculoskeletal: no edema, pulses present Neurological: non-focal, moves all 4 limbs Psychiatric: normal affect, A&O x 3 Skin: normal turgor, cap refill <2 seconds Dx/Plan (1) Fall Code(s): W19.XXXA - UNSPECIFIED FALL, INITIAL ENCOUNTER Status: Acute Qualifiers: Encounter type: initial encounter Qualified Code(s): W19.XXXA - Unspecified fall, initial encounter (2) Elevated troponin Code(s): R74.8 - ABNORMAL LEVELS OF OTHER SERUM ENZYMES Status: Acute (3) CAD (coronary artery disease) Code(s): I25.10 - ATHSCL HEART DISEASE OF [place] CORONARY ARTERY W/O ANG PCTRS Status: Chronic (4) HFrEF (heart failure with reduced ejection fraction) Code(s): I50.20 - UNSPECIFIED SYSTOLIC (CONGESTIVE) HEART FAILURE Status: Chronic (5) History of CVA (cerebrovascular accident) Code(s): Z86.73 - PRSNL HX OF TIA (TIA), AND CEREB INFRC W/O RESID DEFICITS Status: Chronic (6) Atrial fibrillation with RVR Code(s): I48.91 - UNSPECIFIED ATRIAL FIBRILLATION Status: Chronic (7) Atrial fibrillation with controlled ventricular response Code(s): I48.91 - UNSPECIFIED ATRIAL FIBRILLATION Status: Chronic (8) CKD (chronic kidney disease) stage 3, GFR 30-59 ml/min Code(s): N18.3 - CHRONIC KIDNEY DISEASE, STAGE 3 (MODERATE) Status: Chronic (9) Essential hypertension Code(s): I10 - ESSENTIAL (PRIMARY) HYPERTENSION Status: Chronic - Plan Plan: Physical deconditioning -PT/OT consulted, rehab screen -Rehab placement, home health Fall -denies he hit his head -Rt hip more painful this AM, continue acetaminophen PRN for pain -All imaging has been negative for fracture of Rt elbow, Rt hip, pelvis, cervical spine -Brain CT neg -continue cold packs for hip pain - Discussed risk/benefits discontinuing eliquis with patient yesterday due to high fall risk, (balancing stroke risk with bleeding risk). Discussed again today, patient states he would like to discontinue eliquis at this time. Answered all questions. - Continue aspirin. Elevated Troponin - Denies CP, SOB - Elevated trops on prior admission - Known CAD s/p stent placement. Follows with Dr Sherman - Dae sylvester - EKG for chest pain - FLP obtained yesterday 11/24. Pt age outside ASCVD risk calc recommendations EDISON on CKD, improving - Continue to monitor with AM BMP HFrEF - Echo 10/29/16: EF 25-30% - HH diet - Continue home meds - Strict I&Os, daily wts, fluid restriction Afib on AC - Continue home Eliquis - Tele monitoring Hx of CVA - Uses cane to ambulate - PT/OT consulted CAD s/p stent x1 - Continue home meds - Manage as above HTN - Continue home meds Code status: FULL. DVT ppx: discontinue eliquis. Dispo: pending placement PCP: Dr. Eisenberg Addendum - Attending - Attending Attestation Date/Time: 11/28/18 0902 I personally evaluated the patient and discussed the management with Dr. Scott. I agree with the History, Examination, Assessment and Plan documented above with any addition or exceptions noted below. Patient doing well this morning. Continue therapy while here, awaiting decision regarding inpatient rehab approval. Discussion about his anticoagulation given his fall risk today.
[2018-11-28] MEDS: Multivit, Therapeutic 1 TAB PO SCH (09:07)
[2018-11-28] MEDS: Famotidine 20 MG TAB PO SCH (09:07)
[2018-11-28] MEDS: Polyethylene Glycol 3350 17 GM Packet PO SCH (09:07)
[2018-11-28] MEDS: Finasteride 5 MG TAB PO SCH (09:08)
[2018-11-28] MEDS: Digoxin 0.125 MG TAB PO SCH (09:08)
[2018-11-28] MEDS: Potassium Chloride 8 MEQ TAB PO SCH (09:08)
[2018-11-28] MEDS: Carvedilol 6.25 MG TAB PO SCH ×2 (09:08→17:29)
[2018-11-28] MEDS: Furosemide 20 MG TAB PO SCH (09:08)
[2018-11-28] MEDS: Aspirin 81 mg Enteric Coated Tablet PO SCH (09:08)
[2018-11-28] MEDS: Apixaban 2.5 MG TAB PO SCH (09:14)
[2018-11-28] MEDS ORDERED: Polyethylene Glycol 3350 17 GM Packet PO SCH (10:00)
[2018-11-28 12:00] VITALS: TEMP 97.8
[2018-11-28] MEDS: Acetaminophen ER (8hr) 650 MG TAB PO PRN ×2 (14:26)
[2018-11-28 17:30] VITALS: BP 120/74
--- NOTE | 2018-11-29 11:23 | DIS ---
DATE OF ADMISSION: 11/24/2018 DATE OF DISCHARGE: 11/28/2018 RESIDENT: Berna Scott MD ADMITTING ATTENDING: Kadeem Abbott MD DISCHARGE ATTENDING: Kadeem Abbott MD CONSULTS: None. PROCEDURES: 1. 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 Adjacent marked changes of hypermotility and secondary spondylosis changes seen at C3-C4, C4-C5, C6-C7, and C7-T1. No evidence of acute cervical spine fracture seen. Extensive bilateral distal common carotid artery vascular calcifications. 2. Brain CT 11/24/2018: Cortical atrophy and deep white matter ischemic changes. No evidence of acute intracranial pathology is seen. 3. Elbow x-ray 11/24/2018, normal two-view right elbow. 4. Hip x-ray 11/24/2018, normal two-view right hip. 5. Pelvis x-ray 11/24/2018, no evidence of acute pelvis fractures. PRIMARY DIAGNOSES: 1. Physical deconditioning. 2. Mechanical fall. SECONDARY DIAGNOSES: 1. Acute kidney injury on chronic kidney disease, improving. 2. Elevated troponin. 3. Heart failure with reduced ejection fraction. 4. Atrial fibrillation. 5. History of peripheral vascular disease. 6. Coronary artery disease, status post stent x1. 7. Hypertension. DISCHARGE MEDICATIONS: 1. Finasteride 5 mg p.o. daily. 2. Aspirin 81 mg p.o. daily. 3. Potassium chloride 8 mEq oral daily. 4. Benazepril 5 mg oral daily. 5. Atorvastatin 40 mg p.o. at bedtime. 6. Digoxin 0.125 mg p.o. daily. 7. Carvedilol 6.25 mg p.o. b.i.d. 8. CoQ10 one tab p.o. daily. 9. Furosemide 20 mg p.o. every morning. 10. Acetaminophen 650 mg p.o. q.i.d. p.r.n., the patient takes this at breakfast , lunch, dinner, and at bedtime. 11. Multivitamin one tab p.o. daily. 12. Famotidine 20 mg p.o. daily. 13. MiraLAX 17 g p.o. daily. 14. Senokot 2 tabs p.o. at bedtime p.r.n. for constipation. 15. Maalox 15 mL p.o. q.4 hours p.r.n. for indigestion. 16. Artificial Tears 1-2 drops each eye as directed p.r.n. for dry eye. DISCONTINUED MEDICATIONS: Eliquis 2.5 mg p.o. b.i.d. HISTORY OF PRESENT ILLNESS/HOSPITAL COURSE: An 88-year-old male with a past medical history of hypertension with history of CVA and coronary artery disease status post stent as well as atrial fibrillation on anticoagulation with Eliquis, presented after falling in his kitchen and pushing his Life Alert button. The patient states that he was preparing dinner when he fell. He reports he lost his balance and did not have his cane. He waited 30 to 40 minutes before hitting his Life Alert button while trying to get up on his own. He denies dizziness, nausea, diaphoresis, lightheadedness, loss of consciousness, head trauma, chest pain or shortness of breath. He reports he fell on his lower back and right hip. In the ED, he had negative imaging of his right elbow, pelvis, and right hip. CT of his cervical spine and brain showed chronic changes. The patient had elevated troponin that was downtrending. The patient's EDISON on CKD improved. The patient was placed on fluid restriction for his heart failure with reduced ejection fraction. The patient's last echo was 10/29/2016 that showed EF of 25% to 30%. The patient has AFib and came in on Eliquis anticoagulation. Discussed with the patient the risks versus benefits of continuing Eliquis for anticoagulation and stroke prevention with his history of recurrent falls and his other comorbidities. The patient decided to discontinue Eliquis at this time as he was at high risk for falling again and potentially hitting his head.. Physical deconditioning, PT and OT were consulted, and the patient was sent to a rehab facility. The patient showed hesitation to go to rehab at first with a concern that they would not let him go home. I have reassured patient that they will not keep him as it is not a long-term care facility and he could discharge to home from rehab and resume his home health care. DISPOSITION: Stable. DISCHARGE INSTRUCTIONS: 1. Location: [facility]. 2. Diet: Heart healthy, low-sodium diet. 3. Activity: As tolerated. 4. Therapy: Home health, occupational therapy, physical therapy. 5. Followup: Follow up with Dr. Eisenberg within 1 week of discharge from rehab. Job ID: [id number] MTDD
--- NOTE | 2018-12-01 17:14 | EKG ---
Test Reason : Blood Pressure : / mmHG Vent. Rate : 091 BPM Atrial Rate : 087 BPM P-R Int : 000 ms QRS Dur : 160 ms QT Int : 414 ms P-R-T Axes : 000 -07 153 degrees QTc Int : 509 ms Undetermined rhythm Left bundle branch block Abnormal ECG Confirmed by BRONSON HARDWICK ([id number]), senior technical editor BOOM FRAZIER ([id number]) on 12/01/2018 5:14:40 PM Referred By: Confirmed By:BRONSON HARDWICK
== END 2018-11-28 18:53 ==
LOC: ERS 18:15 → 2SW 19:47
PROVIDERS: ADMIT Student in an Organized Health Care Education/Training Program; ATTEND Student in an Organized Health Care Education/Training Program
DX: R53.81 Other malaise (principal); R74.8 Abnormal levels of other serum enzymes; I25.10 Atherosclerotic heart disease of native coronary artery without angina pectoris; I48.91 Unspecified atrial fibrillation; I13.0 Hypertensive heart and chronic kidney disease with heart failure and stage 1 through stage 4 chronic kidney disease, or unspecified chronic kidney disease; N18.3 Chronic kidney disease, stage 3 (moderate); I50.20 Unspecified systolic (congestive) heart failure; I42.9 Cardiomyopathy, unspecified; Z95.5 Presence of coronary angioplasty implant and graft; Z79.82 Long term (current) use of aspirin; Z79.899 Other long term (current) drug therapy; W19.XXXA Unspecified fall, initial encounter
CPT/HCPCS: 70450; 72125; 72170; 73070; 73502; 80048; 80053; 82550; 82553 ×2; 82565; 84484 ×4; 85014; 85018; 85025; 85049; 85610; 85730; 93005; 96374; 97110; 97116 ×2; 97139 ×7; 97535; 99285; 99406; G0378 ×3; 36415; J1885

== ENCOUNTER 2020-10-09 15:37 | Inpatient (IN) | payer MEDICARE ==
[~2020-10-09 15:37] MED LIST: Iopamidol-370 76% 500 ML 1 ML ONE
[2020-10-09 16:30] LABS: #Lymphocytes 1.5 thou/uL (1.20-3.40); #Monocytes 0.7 thou/uL (0.11-0.59); %Basophils 0.2 % (0.0-1.0); %Eosinophils 0.5 % (0.0-10.0); %Lymphocytes 18.1 % (21.0-51.0); %Monocytes 8.1 % (0.0-10.0); %Neutrophils 73.1 % (42.0-75.0); Mean Corpuscular HGB CONC 30.9 g/dL (32.0-36.0); Mean Corpuscular Hemoglobin 29.3 pg (27.0-31.0); Mean Corpuscular Volume 94.7 fL (78.0-98.0); Mean Platelet Volume 10.2 fL (7.4-10.4); Platelet Count 238 thou/uL (130-400); RBC Distribution Width 19.7 % (11.5-14.5); Red Blood Cell (RBC) Count 4.44 mill/uL (4.70-6.10); White Blood Cell (WBC) Count 8.1 thou/uL (4.8-10.8)
[2020-10-09 16:52] LABS: ALT (SGPT) 25 U/L (8-55); AST (SGOT) 38 U/L (5-34); Albumin 2.6 g/dL (3.4-4.8); Alkaline Phosphatase 138 U/L (40-110); Anion Gap 13 mmol/L (10-20); BUN (Urea Nitrogen) 28 mg/dL (8.4-25.7); Bilirubin, Total 0.7 mg/dL (0.2-1.2); Calc. Creatinine Clearance 0 mL/min (70-130); Calcium 8.6 mg/dL (7.8-10.44); Carbon Dioxide 36 mmol/L (23-31); Chloride 98 mmol/L (98-107); Glucose 171 mg/dL (83-110); Potassium 5.1 mmol/L (3.5-5.1); Protein, Total 7.6 g/dL (5.8-8.1); Sodium 142 mmol/L (136-145)
--- NOTE | 2020-10-09 16:53 | RAD ---
CHEST ONE VIEW: 10/09/20 HISTORY: Dyspnea. COMPARISON: Radiograph 08/28/20. FINDINGS: Heart size is enlarged. Moderate pulmonary edema and moderate effusions. No acute osseous abnormality . Degenerative changes of both shoulders and right rotator cuff insufficiency. IMPRESSION: Moderate decompensated congestive heart failure. POS: HOME
[2020-10-09] MEDS ORDERED: Acetaminophen 500 MG TAB ONE (17:08)
[2020-10-09 17:13] LABS: CKMB 1.4 ng/mL (0-6.6)
--- NOTE | 2020-10-09 17:49 | PDOC.FPRHP ---
- History of Present Illness Chief Complaint: SOB History of Present Illness: 89 y/o M [facility]. He is usually on 2L of O2 at [place], but was having increased work of breathing and tachypnea. Pt was reportedly satting in the mid 80 on his home oxygen. EMS with a DuoNeb with no improvment and his O2 was bumped up to 4L [place]. Pt denied any cough, rhinorrhea, sinus congestion, fever/chills, or pain. States that he is very hungry and would like to eat. ED Course: 40 mg IV lasix tylenol 1g - Allergies/Adverse Reactions Allergies Allergy/AdvReac Type Severity Reaction Status Date / Time No Known Drug Allergies Allergy Verified 10/10/20 04:21 - Home Medications Medication Instructions Recorded Confirmed Type Finasteride 5 mg PO DAILY 10/28/16 10/09/20 History Aspirin [Ecotrin Low Strength] 81 mg PO DAILY tab 11/01/16 10/10/20 Rx Atorvastatin Calcium [Lipitor] 40 mg PO HS 12/23/16 10/09/20 History Potassium Chloride 10 meq PO DAILY 12/23/16 10/09/20 History Digoxin [Lanoxin] 0.125 mg PO DAILY 03/20/17 10/09/20 History Acetaminophen [Pain Relief 8Hr] 1 tablet PO QID 01/05/18 10/10/20 History Furosemide [Lasix] 40 meq PO QAM 01/05/18 10/09/20 History Multivit, Therapeutic [Theragran] 1 tab PO DAILY 01/05/18 10/09/20 History Ubidecarenone [CoQ-10] 1 tab PO DAILY 01/05/18 10/09/20 History Famotidine [Pepcid] 20 mg PO DAILY tab 01/09/18 10/09/20 Rx Polyethylene Glycol 3350 [Miralax] 17 gm PO DAILY pk 01/09/18 10/09/20 Rx Sennosides [Senokot] 2 tab PO HSPRN PRN tab 01/09/18 10/09/20 Rx Aluminum & Magnesium Hydroxide 15 ml PO Q4HR PRN 01/10/18 10/10/20 History [Maalox] Artificial Tear Annika 15ml Bot 1 - 2 drop EA EYE ASDIR PRN 01/10/18 10/10/20 History [Tears Renewed] Carvedilol [Coreg] 3.125 mg PO BID-WM 30 Days #60 tab 08/25/20 10/09/20 Rx ALButerol Sulfate [Ventolin Neb] 2.5 mg PO PRN PRN 10/09/20 10/09/20 History Albuterol Sulfate [Proair 90 mcg PO PRN PRN 10/09/20 10/09/20 History Digihaler] Allopurinol 100 mg PO DAILY 10/09/20 10/09/20 History Sacubitril/Valsartan [Entresto 24 1 each PO QAM 10/09/20 10/09/20 History mg-26 mg Tablet] hydrOXYzine [Atarax] 25 mg PO TID PRN 10/09/20 10/09/20 History - History PMHx: -HFrEF -Hx of CVA -BPH -CKD 3 -AFib -CAD -HLD PSHx: -Appendectomy -Splenectomy -Cardiac stents -R inguinal hernia repair FHx: -non contributory Social: -lives in [facility] -remote hx of smoking - Review of Systems General: denies: fever/chills, fatigue ENT: denies: nasal congestion, rhinorrhea Respiratory: reports: shortness of breath. denies: cough, congestion Cardiovascular: denies: chest pain, palpitation, edema Gastrointestinal: denies: nausea, vomiting, diarrhea, constipation, abdominal pain Genitourinary: denies: dysuria Skin: reports: rashes. denies: lesions, jaundice Musculoskeletal: denies: pain, tenderness Neurological: denies: weakness - Vital signs BP: 126/70 (Sitting), Pulse: 54, Resp: 22 (Mild Distress), Pain: 5, O2 sat: 94 on (2L Oxygen), Time: 10/09/2020 17:35. - Physical Exam Constitutional: NAD, awake, alert and oriented, well developed HEENT: normocephalic and atraumatic, conjunctiva clear, no scleral icterus, MMM Neck: supple Heart: normal S1/S2, no murmurs/rubs/gallops, pulses present, other (Irregular RR) Lungs: no rales/rhonchi, other (tacypneic, inspiratory crackles heard at bases) Abdomen: soft, non-tender, bowel sounds present, no masses/distention, other (rash seen aross entire abdomen and chest) Musculoskeletal: other (stasis ulcers seen of LLE, dry, cracked skin no pitting edema) Neurological: other (L sided weakness of UE and LE from CVA, hard to understand speech at baseline) Heme/Lymphatic: no purpura, no LAD Psychiatric: intact recent and remote memory FMR H&P: Results - Labs Result Diagrams: 10/09/20 16:13 10/10/20 03:02 Lab results: WBC 8.1 thou/uL (4.8-10.8) 10/09/20 16:13 Hgb 13.0 g/dL (14.0-18.0) L 10/09/20 16:13 Hct 42.0 % (42.0-52.0) 10/09/20 16:13 MCV 94.7 fL (78.0-98.0) 10/09/20 16:13 Plt Count 238 thou/uL (130-400) 10/09/20 16:13 Neutrophils % 73.1 % (42.0-75.0) 10/09/20 16:13 Sodium 142 mmol/L (136-145) 10/09/20 16:14 Potassium 5.1 mmol/L (3.5-5.1) 10/09/20 16:14 Chloride 98 mmol/L (98-107) 10/09/20 16:14 Carbon Dioxide 36 mmol/L (23-31) H 10/09/20 16:14 BUN 28 mg/dL (8.4-25.7) H 10/09/20 16:14 Creatinine 1.17 mg/dL (0.7-1.3) 10/09/20 16:14 Glucose 171 mg/dL (83-110) H 10/09/20 16:14 Lactic Acid 2.6 mmol/L (0.5-2.2) H 10/09/20 16:13 Calcium 8.6 mg/dL (7.8-10.44) 10/09/20 16:14 Total Bilirubin 0.7 mg/dL (0.2-1.2) 10/09/20 16:14 AST 38 U/L (5-34) H 10/09/20 16:14 ALT 25 U/L (8-55) 10/09/20 16:14 Alkaline Phosphatase 138 U/L (40-110) H 10/09/20 16:14 CK-MB (CK-2) 1.4 ng/mL (0-6.6) 10/09/20 16:14 Serum Total Protein 7.6 g/dL (5.8-8.1) 10/09/20 16:14 Albumin 2.6 g/dL (3.4-4.8) L 10/09/20 16:14 - EKG Interpretation EKG: atrial fibrillation no ST changes - Radiology Interpretation CT scan - abdomen Status: image reviewed by me, report reviewed by me (3.0 cm renal mass noted at lower pole) Chest x-ray Status: image reviewed by me (moderate pleural effusions seen bilaterally), report reviewed by me FMR H&P: A/P - Plan ##Acute Hypoxic Resp Failure 2/2 CHF exacerbation -increased O2 requirement from baseline, currently @ 4L NC 3to keep sats > 90% -BNP 4000, CXR shows pulmonary edema, pleural effusions -s/p 1 dose lasix in ED, lasix 40mg IV @ 12AM, then BID dosing, home dose 40mg PO -continue other home meds -strict I/O, daily weights -monitoring on telemetry -ECHO in 08/2020 showed EF 20% -COVID/Flu negative ##Indeterminate trop -no EKG ST changes -trop 0.045, will trend ##Lactic Acidosis -LA 2.6 on admission, most likely due to poor tissue perfusion -blood clx reflexively drawn ##New finding renal mass -3cm renal pole mass noted on CT, patient unaware -day team to decided w/u, biopsy need ##Petechial Rash -noted on chest and abdomen -PT/INR obtained ##Chronic leg wounds -aware -wound care consulted Chronic Conditions: ##Afib: no anticoagulation due to high risk for falls ##CKD 3: Design Architect stable, 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 diuresis initiated. oxygen/respiratory status to be monitored. FMR H&P: Upper Level - Plan Date/Time: 10/09/20 820 I, Durna Leyva [id number], have evaluated this patient and agree with findings/plan as outlined by merchandising internship resident. Pertinent changes/additions are listed here. 89-year-old male with past medical history of congestive heart failure presents to the hospital with increased oxygen demand. He presents from rehab, was [facility] from [facility] after a fall and was in rehab. Baseline oxygen requirement is 2 L and he is now requiring 4, patient has shortness of breath. No fever no chills no chest pain. On exam the patient is oxygen saturation 94 on 2 L of oxygen and is tachypneic to 22 breaths/min. His heart has irregular rhythm but normal rate. Lungs have bilateral inspiratory crackles in lung base. Abdomen is soft and nontender. 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 Patient has slurred speech at baseline from previous CVA. He also has left-sided deficits. Assessment and plan CHF exacerbation Patient is stable on 4 L of oxygen and status post 1 dose 40 mg of IV Lasix. His last ejection fraction in August 2020 was 20%. On chart review in his last hospitalization his Lasix regimen was deescalated secondary to low blood pressures. This could have been exacerbating reason for exacerbation. Will give another dose of Lasix in 6 hours and then start twice daily IV dosing. Strict ins and outs, fluid restriction diet. Indeterminate troponin Likely demand ischemia, NSTEMI type II. Will trend troponins Petechial rash Unknown etiology, patient is unsure of previous work-up. Platelets are normal. Possibly vasculitis. We will start by getting coagulation studies. Left renal mass Incidental finding on abdominal CT in the emergency room. We will plan to consult urology in the morning for possible biopsy Cholelithiasis Small gallstones possibly seen on CT scan incidental finding. Patient is asymptomatic. 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 Will consult wound care A. fib Patient is on Coreg, on chart review it is evident he is not on anticoagulation because of frequent falls and being high risk. All other chronic problems per merchandising internship note as listed, hypertension, chronic kidney disease stage IIIa, history of CVA with left-sided deficits, BPH, CAD, HLD CODE: Full, per pt and chart review from previous admit dispo: inpt, expect > 2 midnights Addendum - Attending - Attending Attestation Date/Time: 10/10/20 1730 I personally evaluated the patient and discussed the management with Dr. Aviles/Autumn. I agree with the History, Examination, Assessment and Plan documented above with any addition or exceptions noted below. Please see progress note for 10/10/20 for full attestation for 10/10/20.
[2020-10-09] MEDS ORDERED: Furosemide 40 MG/4 ML VIAL ONE (17:59)
--- NOTE | 2020-10-09 18:07 | CT ---
CT Abdomen Pelvis W Con: 10/09/2020 5:45 PM CLINICAL INFORMATION: Abdominal pain and hypoxia COMPARISON: 05/17/2007 TECHNIQUE: Multiple contiguous axial images were obtained and a CT of the abdomen and pelvis with IV contrast. C oronal and sagittal reformats were performed. FINDINGS: Lower Chest: Moderate bilateral pleural effusions with adjacent atelectasis. Abdomen: Liver: within normal limits. Bile Ducts: Normal caliber. Gallbladder: A small hyperdensity in the gallbladder neck may represent a gallstone. Pancreas: within normal limits. Spleen: Absent. There may be small splenules in the left upper quadrant of the abdomen. Adrenals: within normal limits. Kidneys: Multiple hypodensities are seen in the right kidney which likely represent cysts. There is a 3.0 cm mass along the lower pole the left kidney which is not hypodense and is concerning for a renal neoplasm. Pelvis: Reproductive Organs: No pelvic masses. Ureters: within normal limits. Bladder: within normal limits. Peritoneum: There is a small amount of ascites. No free air is seen. Bowel: Normal caliber. Mesentery and Retroperitoneum: No enlarged mesenteric or retroperitoneal lymph nodes. Vessels: Atherosclerotic calcifications. Abdominal Wall: Diffuse soft tissue anasarca. Bones: Degenerative changes in the spine. The patient has a left hip prosthesis. IMPRESSION: 1. Possible small gallstone. 2. Left renal mass could represent a renal cell carcinoma. 3. Right renal cysts 4. Bilateral pleural effusions with adjacent atelectasis
[2020-10-09 18:37] LABS: SARS-CoV-2 NAA Rapid Test Not Detected (NotDetected)
[2020-10-09] MEDS ORDERED: Ondansetron PF 4 MG/2 ML Vial IVP PRN (18:38)
[2020-10-09] MEDS ORDERED: Ondansetron ODT 4 MG TAB PO PRN (18:38)
[2020-10-09 19:23] LABS: Lactic Acid 2.3 mmol/L (0.5-2.2)
[2020-10-09 20:20] LABS: INR-International Normal Ratio 1.2; PTT 36.5 sec (22.9-36.1); Prothrombin Time 15.9 sec (12.0-14.7)
[2020-10-09] MEDS ORDERED: hydrOXYzine 25 MG TAB PO PRN (21:38)
[2020-10-09] MEDS ORDERED: Senokot 8.6 MG TAB PO PRN (21:38)
[2020-10-09 22:56] LABS: Troponin I 0.065 ng/mL (< 0.028)
[2020-10-10] MEDS ORDERED: Furosemide 40 MG/4 ML VIAL SLOW IVP SCH (00:01)
[2020-10-10] MEDS ORDERED: Ketorolac Tromethamine 30 MG/ML VIAL IVP SCH (01:15)
[2020-10-10] MEDS ORDERED: Ketorolac Tromethamine 60 MG/2 ML VIAL IVP SCH (01:15)
[2020-10-10 03:31] LABS: Troponin I 0.049 ng/mL (< 0.028)
[2020-10-10 03:34] LABS: ALT (SGPT) 21 U/L (8-55); AST (SGOT) 30 U/L (5-34); Albumin 2.4 g/dL (3.4-4.8); Alkaline Phosphatase 110 U/L (40-110); Anion Gap 12 mmol/L (10-20); BUN (Urea Nitrogen) 26 mg/dL (8.4-25.7); Bilirubin, Total 0.8 mg/dL (0.2-1.2); Calc. Creatinine Clearance 69 mL/min (70-130); Calcium 8.7 mg/dL (7.8-10.44); Carbon Dioxide 35 mmol/L (23-31); Chloride 99 mmol/L (98-107); Globulin 4.7 g/dL (2.4-3.5); Glucose 97 mg/dL (83-110); Magnesium 1.8 mg/dL (1.6-2.6); Protein, Total 7.1 g/dL (5.8-8.1); Sodium 142 mmol/L (136-145)
--- NOTE | 2020-10-10 06:16 | PDOC.FM ---
- Subjective Subjective: Patient is hungry this morning and says he has been urinating a lot. - Objective Vital Signs & Weight: Vital Signs (12 hours) Temp Pulse Resp BP Pulse Ox 10/10/20 04:01 98.3 F 64 24 H 111/82 96 10/09/20 22:45 62 109/79 97 10/09/20 19:45 97.4 F L 73 20 118/52 L 97 Weight Weight 86.818 kg Result Diagrams: 10/09/20 16:13 10/10/20 03:02 EKG Reviewed by me: Yes (3 second pauses, 12 beats Vtach, Afib w/PACs) Phys Exam - Physical Examination Constitutional: NAD HEENT: sclera anicteric Neck: no nodes, full ROM Respiratory: no wheezing, no rales, clear to auscultation bilateral irregular rhythm Gastrointestinal: soft, non-tender, positive bowel sounds Musculoskeletal: pulses present chronic wounds Neurological: non-focal Lymphatic: no nodes Psychiatric: normal affect Skin: no rash Dx/Plan - Plan Plan: Acute Hypoxic Resp Failure 2/2 CHF exacerbation -increased O2 requirement from baseline, currently @ 3L NC 3to keep sats > 90% -BNP 4000, CXR shows pulmonary edema, pleural effusions. COVID/Flu negative -ECHO in 08/2020 showed EF 20% -Continue 40mg IV lasix BID -continue other home meds -strict I/O, daily weights -monitoring on telemetry: repeat 3 second pauses, 13 beats of Vtach, otherwise Afib w/PACs -Consult cardiology today Dysphagia secondary to history CVA with L deficits -Failed dysphasia screening. -Speech consult for diet recommendations. Currently NPO Lactic Acidosis -LA 2.6, 2.3 -most likely due to poor tissue perfusion -BCx pending New finding renal mass -3cm renal pole mass noted on CT -Will call patient's son and inform. Outpatient workup if patient and son decide to do so. Petechial Rash -noted on chest and abdomen -PT 15.9, INR 1.2 Chronic leg wounds -wound care consulted Indeterminate trop, resolved -no EKG ST changes -trop 0.045, 0.05, 0.065, 0.049 Chronic Conditions: ##Afib: no anticoagulation due to high risk for falls ##CKD 3: Cr stable, 1.17 ##BPH ##HTN ##HLD ##ERD ##BPH -continue home meds CODE: FULL VTE: Lovenox DIET: HH, fluid retrisction PCP: Devang Eisenberg PA Dispo: Continue diuresis. Consult Cardiology due to pauses. Addendum - Attending - Attending Attestation Date/Time: 10/10/20 9675 I personally evaluated the patient and discussed the management with Dr. Marvin. I agree with the History, Examination, Assessment and Plan documented above with any addition or exceptions noted below. Patient reports shortness of breath and being hungry this morning. He failed his bedside swallow test yesterday. Will re-eval today and consult RETIREMENT OFFICER, confirm what his outpatient diet is. He appears to be having mild CHF exacerbation. Continue diuresis. Strict I/O. Wean O2 as tolerated. Labs improved.
[2020-10-10] MEDS: Furosemide 40 MG/4 ML VIAL SLOW IVP SCH ×3 (06:20→15:25)
[2020-10-10] MEDS: Multivit, Therapeutic 1 TAB PO SCH (08:28)
[2020-10-10] MEDS: Allopurinol 100 MG TAB PO SCH (08:28)
[2020-10-10] MEDS: Aspirin 81 mg Enteric Coated Tablet PO SCH (08:28)
[2020-10-10] MEDS: Famotidine 20 MG TAB PO SCH (08:28)
[2020-10-10] MEDS: Potassium Chloride 10 MEQ TAB PO SCH (08:28)
[2020-10-10] MEDS: Carvedilol 3.125 MG TAB PO SCH ×2 (08:29→16:22)
[2020-10-10] MEDS: Finasteride 5 MG TAB PO SCH (08:29)
[2020-10-10] MEDS: Polyethylene Glycol 3350 17 GM Packet PO SCH (08:30)
[2020-10-10] MEDS ORDERED: Enoxaparin Sodium 40 MG/0.4 ML SYRINGE SC SCH (09:00)
[2020-10-10] MEDS ORDERED: Digoxin 0.125 MG TAB PO SCH (09:00)
[2020-10-10 14:44] VITALS: BMI 26.7
--- NOTE | 2020-10-10 18:56 | CON ---
DATE OF CONSULTATION: 10/10/2020 REASON FOR CONSULTATION: Heart failure and pauses. HISTORY OF PRESENT ILLNESS: Mr. Bettencourt is a very pleasant 89-year-old white gentleman, who comes to the hospital for shortness of breath. He is a patient of Dr. Fede Sherman, but has been evaluated and seen by Dr. Allred here in the past. He comes in for worsening shortness of breath, so he was admitted and placed on IV Lasix. He has a known systolic dysfunction with an EF of 20% on an echo done in August 2020. He has moderate to severe tricuspid regurgitation as well as elevated right ventricular systolic pressures at that time. He comes in, and he is in atrial fibrillation with slow ventricular response and he has been having a lot of 3 to 4-second pauses which are minimally symptomatic. He has not had any syncope or presyncope. PAST MEDICAL HISTORY: 1. Chronic systolic heart failure. 2. History of CVA with residual with slurred speech. 3. BPH. 4. Chronic kidney disease, stage 3. 5. History of chronic atrial fibrillation. 6. CAD. 7. Hyperlipidemia. SURGICAL HISTORY: 1. Appendectomy. 2. Splenectomy. 3. Cardiac stents in the past. 4. Right inguinal hernia repair. FAMILY HISTORY: Noncontributory. SOCIAL HISTORY: prison resident at [facility]. Former smoker, has not smoked in many years. OUTPATIENT MEDICATIONS: Include: 1. Finasteride 5 mg a day. 2. Aspirin 81 a day. 3. Atorvastatin 40 mg at bedtime. 4. Potassium chloride 10 mEq a day. 5. Digoxin 0.125 b.i.d. daily. 6. Tylenol p.r.n. 7. Lasix 40 mg q.a.m. 8. Multivitamin daily. 9. CoQ10. 10. Pepcid AC daily. 11. Polyethylene glycol p.r.n. 12. Senna-S p.r.n. 13. Maalox p.r.n. 14. Artificial Tears p.r.n. 15. Coreg 3.125 b.i.d. 16. Albuterol inhaler. 17. Allopurinol. 18. Entresto 24/26 b.i.d. 19. Hydroxyzine p.r.n. ALLERGIES: NO KNOWN DRUG ALLERGIES. REVIEW OF SYSTEMS: A 12-point review of systems was done and was found to be negative other than stated in the history of present illness. Difficult to obtain as he has slurred speech from previous stroke. PHYSICAL EXAMINATION: VITAL SIGNS: Temperature 97.5, pulse respiratory rate 22, saturating 99% on 3 L, blood pressure 131/86. GENERAL: Awake, alert, oriented x3, in no distress. He just had a very hard time saying the words, but he can. He is very well oriented. HEENT: Normocephalic atraumatic. NECK: Supple. LUNGS: Mild crackles at bases. CARDIOVASCULAR: S1 and S2. No S3 or S4. Regular rate with heart rate in the 50s. ABDOMEN: Soft. Positive bowel sounds. EXTREMITIES: Trace edema. SKIN: Warm and dry. LABORATORY DATA: Laboratory work was reviewed. White count of 8, hemoglobin 13, hematocrit 42, and platelet count of 238. Coags; INR 1.2. Chemistries were reviewed. Troponin is 0.04, 0.05. 0.06, 0.04. Lactic acid was 2.3, creatinine was 0.91, normal potassium, albumin of 2.4. BNP was 4205, which is a lot higher than his baseline. He left the hospital last time at 2700. ASSESSMENT AND PLAN: 1. Acute on chronic systolic heart failure. 2. Indeterminate troponin, likely type 2 demand ischemia. 3. Renal mass. This is a new finding on a CT done in the ER. 4. Atrial fibrillation with slow ventricular response. 5. Pauses of about 3-4 seconds. PLAN: 1. Agree with IV diuresis. 2. Currently, we will plan on holding beta blockers and digoxin, as his atrial fibrillation is going very slow and he is getting somewhat symptomatic every time his heart rate has a pause. He may eventually require a pacemaker. However, at this time, I do not think this is the case. We will just hold on both beta michael and digoxin. Continue other medications for now. Thank you for letting us participate in the care of your patient. We will follow. Job ID: [id number]
[2020-10-10] MEDS: Atorvastatin Calcium 40 MG TAB PO SCH (20:47)
[2020-10-11] MEDS: Furosemide 40 MG/4 ML VIAL SLOW IVP SCH ×3 (06:19→14:42)
--- NOTE | 2020-10-11 06:20 | PDOC.FM ---
- Subjective Subjective: Patient is doing well this AM. He is pleased he is now cleared for a diet but says the meals aren't large enough. Otherwise he has no complaints. - Objective Vital Signs & Weight: Vital Signs (12 hours) Temp Pulse Resp BP Pulse Ox 10/11/20 03:05 97.2 F L 80 12 105/84 97 10/11/20 00:20 69 109/76 10/10/20 20:00 99 10/10/20 19:41 98.2 F 58 L 16 96/54 L 100 Weight Admit Weight 86.818 kg Weight 82.735 kg I&O: 10/09/20 10/10/20 10/11/20 06:59 06:59 06:59 Intake Total 100 960 Output Total 950 950 Balance -850 10 Result Diagrams: 10/09/20 16:13 10/11/20 06:56 EKG Reviewed by me: Yes (4.96 sec pause) Phys Exam - Physical Examination Constitutional: NAD HEENT: moist MMs, sclera anicteric Neck: full ROM Respiratory: clear to auscultation bilateral irregular rate Gastrointestinal: soft, non-tender Musculoskeletal: no edema, pulses present chronic leg wounds Neurological: non-focal Psychiatric: normal affect Dx/Plan - Plan Plan: Acute Hypoxic Resp Failure 2/2 CHF exacerbation -increased O2 requirement from baseline, currently @ 4L NC to keep sats > 90% -BNP 4000, CXR shows pulmonary edema, pleural effusions. COVID/Flu negative -ECHO in 08/2020 showed EF 20% -Continue 40mg IV lasix BID. Increase afternooon dose today to 60mg. -continue other home meds -strict I/O, daily weights -monitoring on telemetry: 4.96 sec pause -Cardiology Consult (Jazmín): discontinued coreg and digoxin. Informed tele techs to only note pauses 5 seconds or greater Suspected Cognitive Decline -Cognition evaluation by speech placed -Pending results, consider Palliative Care consult to assist with MPOA and Code status Dysphagia secondary to history CVA with L deficits -Approved for diet by speech Lactic Acidosis -LA 2.6, 2.3 -most likely due to poor tissue perfusion -BCx pending New finding renal mass -3cm renal pole mass noted on CT -Patient and son aware. Will follow-up outpatient. Petechial Rash -noted on chest and abdomen -PT 15.9, INR 1.2 Chronic leg wounds -wound care consulted Indeterminate trop, resolved -no EKG ST changes -trop 0.045, 0.05, 0.065, 0.049 Chronic Conditions: ##Afib: no anticoagulation due to high risk for falls ##CKD 3: Cr stable, 1.17 ##BPH ##HTN ##HLD ##ERD ##BPH -continue home meds CODE: FULL VTE: Lovenox DIET: HH, fluid retrisction PCP: Devang Eisenberg [place] Dispo: Patient is stable. Continue diuresis and follow cardiology recs. Addendum - Attending - Attending Attestation Date/Time: 10/11/20 5749 I personally evaluated the patient and discussed the management with Dr. Marvin. I agree with the History, Examination, Assessment and Plan documented above with any addition or exceptions noted below. Patient stable. Continue to diurese. Holding Digoxin and Coreg given his sinus pauses. Continue to monitor on tele, await further cardiology recs. Wean O2 as tolerated as we continue to remove volume.
[2020-10-11 07:34] LABS: BUN (Urea Nitrogen) 25 mg/dL (8.4-25.7); Calc. Creatinine Clearance 53 mL/min (70-130); Calcium 8.9 mg/dL (7.8-10.44); Glucose 75 mg/dL (83-110)
[2020-10-11 07:44] LABS: Anion Gap 14 mmol/L (10-20); Carbon Dioxide 35 mmol/L (23-31); Chloride 99 mmol/L (98-107); Potassium 4.8 mmol/L (3.5-5.1); Sodium 143 mmol/L (136-145)
[2020-10-11] MEDS: Famotidine 20 MG TAB PO SCH (08:30)
[2020-10-11] MEDS: Finasteride 5 MG TAB PO SCH (08:33)
[2020-10-11] MEDS: Allopurinol 100 MG TAB PO SCH (08:33)
[2020-10-11] MEDS: Polyethylene Glycol 3350 17 GM Packet PO SCH (08:33)
[2020-10-11] MEDS: Aspirin 81 mg Enteric Coated Tablet PO SCH (08:33)
[2020-10-11] MEDS: Potassium Chloride 10 MEQ TAB PO SCH (08:34)
[2020-10-11] MEDS: Multivit, Therapeutic 1 TAB PO SCH (08:35)
[2020-10-11] MEDS ORDERED: Furosemide 20 MG/2 ML VIAL SLOW IVP SCH (14:00)
--- NOTE | 2020-10-11 15:32 | PDOC.CPN ---
- Subjective Date: 10/11/20 Time: 15:29 Interval history: No new issues. He continues to have pauses longest at 3.1 secs, less frequent and HR baseline at 70 bpm. - Review of Systems General: denies: fever/chills, weight/appetite/sleep changes, night sweats, fatigue Respiratory: denies: cough, congestion, shortness of breath, exercise intolerance Cardiovascular: denies: chest pain, palpitation, edema, paroxysmal nocturnal dyspnea, orthopnea Gastrointestinal: denies: nausea, vomiting, diarrhea, constipation, abd pain, GI bleeding Musculoskeletal: denies: pain, tenderness, stiffness, swelling, arthritis/arthralgias Neurological: denies: numbness, syncope, seizure, weakness - Objective Allergies/Adverse Reactions: Allergies Allergy/AdvReac Type Severity Reaction Status Date / Time No Known Drug Allergies Allergy Verified 10/10/20 04:21 Visit Medications: Current Medications Allopurinol (Allopurinol 100 Mg Tab) 100 mg PO DAILY [facility] Last Admin: 10/11/20 08:33 Dose: 100 mg Documented by: Aspirin (Aspirin 81 Mg Enteric Coated Tablet) 81 mg PO DAILY [facility] Last Admin: 10/11/20 08:33 Dose: 81 mg Documented by: Atorvastatin Calcium (Atorvastatin Calcium 40 Mg Tab) 40 mg PO HS [facility] Last Admin: 10/10/20 20:47 Dose: 40 mg Documented by: Enoxaparin Sodium (Enoxaparin Sodium 40 Mg/0.4 Ml Syringe) 40 mg SC 2100 DALILA Famotidine (Famotidine 20 Mg Tab) 20 mg PO DAILY [facility] Last Admin: 10/11/20 08:30 Dose: 20 mg Documented by: Finasteride (Finasteride 5 Mg Tab) 5 mg PO DAILY [facility] Last Admin: 10/11/20 08:33 Dose: 5 mg Documented by: Furosemide (Furosemide 40 Mg/4 Ml Vial) 40 mg SLOW IVP 0600,1400 [facility] Last Admin: 10/11/20 14:42 Dose: 40 mg Documented by: Furosemide (Furosemide 20 Mg/2 Ml Vial) 20 mg SLOW IVP 1400 [facility] Last Admin: 10/11/20 14:42 Dose: 20 mg Documented by: Hydroxyzine HCl (Hydroxyzine 25 Mg Tab) 25 mg PO TIDPRN PRN PRN Reason: Anxiety Multivitamins (Multivit, Therapeutic 1 Tab) 1 tab PO DAILY [facility] Last Admin: 10/11/20 08:35 Dose: 1 tab Documented by: Ondansetron HCl (Ondansetron Odt 4 Mg Tab) 4 mg PO Q6H PRN PRN Reason: Nausea/Vomiting Ondansetron HCl (Ondansetron Pf 4 Mg/2 Ml Vial) 4 mg IVP Q6H PRN PRN Reason: Nausea/Vomiting Polyethylene Glycol (Polyethylene Glycol 3350 17 Gm Packet) 17 gm PO DAILY [facility] Last Admin: 10/11/20 08:33 Dose: 17 gm Documented by: Potassium Chloride (Potassium Chloride 10 Meq Tab) 10 meq PO QAM-WM [facility] Last Admin: 10/11/20 08:34 Dose: Not Given Documented by: Sacubitril/Valsartan (Sacubitril 24mg/Valsartan 26mg Tab) 1 tab PO QAM [facility] Last Admin: 10/11/20 10:06 Dose: 1 tab Documented by: Senna (Senokot 8.6 Mg Tab) 2 tab PO HSPRN PRN PRN Reason: Constipation Sodium Chloride (Flush - Normal Saline 10 Ml Syringe) 10 ml IVF PRN PRN PRN Reason: Saline Flush Vital Signs & Weight: Vital Signs Temp Pulse Resp BP Pulse Ox 10/11/20 15:05 97.4 F L 73 20 97 10/11/20 11:22 97.4 F L 54 L 16 102/66 98 10/11/20 07:10 96.7 F L 76 22 H 114/92 H 95 Admit Weight 191 lb 6.4 oz Weight 182 lb 6.4 oz - Physical Exam General: no apparent distress HEENT: mucus membranes moist Neck: supple neck Cardiac: irregularly regular Lungs: clear to auscultation Neuro: no lateralizing findings Abdomen: active bowel sounds Extremities: 1+ LE edema Skin: clear Musculoskeletal: no pain - Labs Result Diagrams: 10/09/20 16:13 10/11/20 06:56 Troponin/CKMB CK-MB (CK-2) 1.4 ng/mL (0-6.6) 10/09/20 16:14 Troponin I 0.049 ng/mL (< 0.028) H 10/10/20 03:02 - Telemetry Supraventricular conduction: atrial fibrillation - Assessment/Plan Assessment/Plan: 1. Acute on chronic systolic heart failure 2. Type 2 demand ischemia 3. Renal mass. 4. Chronic afib with SVR, 5. Pauses, 4 seconds worse. PLAN: - Since holding Coreg and digoxin HR is now at 70's and his last pause was earlier this morning. Last dose was yesterday morning of both meds. - Continue IV diuresis. - May need PPM in the near future. - Mild creatinine bump, may need innotropic support to diurese better if it continues to increase.
[2020-10-11] MEDS: Enoxaparin Sodium 40 MG/0.4 ML SYRINGE SC SCH (20:50)
[2020-10-11] MEDS: Atorvastatin Calcium 40 MG TAB PO SCH (20:51)
[2020-10-11] MEDS ORDERED: Acetaminophen 325 MG TAB PO PRN (21:08)
[2020-10-12] MEDS: Furosemide 40 MG/4 ML VIAL SLOW IVP SCH ×2 (05:32→15:12)
[2020-10-12 06:11] LABS: Anion Gap 13 mmol/L (10-20); BUN (Urea Nitrogen) 24 mg/dL (8.4-25.7); Calc. Creatinine Clearance 57 mL/min (70-130); Calcium 8.7 mg/dL (7.8-10.44); Carbon Dioxide 36 mmol/L (23-31); Chloride 96 mmol/L (98-107); Glucose 96 mg/dL (83-110); Potassium 4.2 mmol/L (3.5-5.1); Sodium 141 mmol/L (136-145)
--- NOTE | 2020-10-12 06:57 | PDOC.FM ---
- Subjective Subjective: Mr. Bettencourt is stable on 4L NC today. He urinated on himself a bit and required assistance getting cleaned up and situated in the bed. - Objective Vital Signs & Weight: Vital Signs (12 hours) Temp Pulse Resp BP Pulse Ox 10/12/20 03:20 97.4 F L 74 20 98/81 95 10/11/20 20:00 100 10/11/20 19:27 97.5 F L 78 19 102/70 100 Weight Admit Weight 86.818 kg Weight 82.055 kg I&O: 10/10/20 10/11/20 10/12/20 06:59 06:59 06:59 Intake Total 100 960 960 Output Total 596 458 5025 Balance -850 10 -140 Result Diagrams: 10/09/20 16:13 10/12/20 05:42 EKG Reviewed by me: Yes (tele: Afib 60-80s, 4 beats Vtach, 4.6 sec pause) Phys Exam - Physical Examination Constitutional: NAD HEENT: moist MMs, sclera anicteric Neck: no nodes Respiratory: no wheezing, no rales, no rhonchi, clear to auscultation bilateral Cardiovascular: no significant murmur irregular rhythm Gastrointestinal: soft, non-tender Musculoskeletal: no edema, pulses present Neurological: non-focal, moves all 4 limbs Psychiatric: normal affect Skin: no rash Dx/Plan - Plan Plan: Acute Hypoxic Resp Failure 2/2 CHF exacerbation -increased O2 requirement from baseline, currently @ 4L NC to keep sats > 90% -BNP 4000, CXR shows pulmonary edema, pleural effusions. COVID/Flu negative -ECHO in 08/2020 showed EF 20% -Continue 40mg IV lasix BID. Add metolazone this afternoon. -continue other home meds -strict I/O, daily weights -monitoring on telemetry: 4.6 sec pause -Cardiology Consult (Jazmín): discontinued coreg and digoxin. Informed tele techs to only note pauses 5 seconds or greater. Considering pacemaker. Suspected Cognitive Decline -Cognition evaluation by speech placed -Pending results, consider Palliative Care consult to assist with MPOA and Code status Dysphagia secondary to history CVA with L deficits -Approved for diet by speech Lactic Acidosis -LA 2.6, 2.3 -most likely due to poor tissue perfusion -BCx pending New finding renal mass -3cm renal pole mass noted on CT -Patient and son aware. Will follow-up outpatient. Petechial Rash -noted on chest and abdomen -PT 15.9, INR 1.2 Chronic leg wounds -wound care consulted Indeterminate trop, resolved -no EKG ST changes -trop 0.045, 0.05, 0.065, 0.049 Chronic Conditions: ##Afib: no anticoagulation due to high risk for falls ##CKD 3: Cr stable, 1.17 ##BPH ##HTN ##HLD ##ERD ##BPH -continue home meds CODE: FULL VTE: Lovenox DIET: HH, fluid retrisction PCP: Devang Eisenberg [place] Dispo: Patient is stable. Add metolazone this afternoon. Follow cardiology recs.
[2020-10-12] MEDS: Famotidine 20 MG TAB PO SCH (08:45)
[2020-10-12] MEDS: Multivit, Therapeutic 1 TAB PO SCH (08:45)
[2020-10-12] MEDS: Polyethylene Glycol 3350 17 GM Packet PO SCH (08:46)
[2020-10-12] MEDS: Potassium Chloride 10 MEQ TAB PO SCH (08:46)
[2020-10-12] MEDS: Aspirin 81 mg Enteric Coated Tablet PO SCH (08:46)
[2020-10-12] MEDS: Finasteride 5 MG TAB PO SCH (08:46)
[2020-10-12] MEDS: Allopurinol 100 MG TAB PO SCH (08:46)
[2020-10-12] MEDS ORDERED: Metolazone 2.5 MG TAB PO SCH (13:30)
--- NOTE | 2020-10-12 17:17 | EKG ---
Test Reason : STAT Blood Pressure : / mmHG Vent. Rate : 066 BPM Atrial Rate : 065 BPM P-R Int : 000 ms QRS Dur : 164 ms QT Int : 446 ms P-R-T Axes : 000 046 217 degrees QTc Int : 467 ms Atrial fibrillation with premature ventricular or aberrantly conducted complexes Non-specific intra-ventricular conduction block Possible anterior/lateral infarct , age undetermined Cannot rule out Inferior infarct , age undetermined Abnormal ECG When compared with ECG of 09-OCT-2020 18:33, (Unconfirmed) Questionable change in QRS axis Borderline criteria for Lateral infarct are now Present Confirmed by DR. Linda CASPER ([id number]) on 10/12/2020 5:16:33 PM Referred By: HAO Confirmed By:DR. Linda CASPER
--- NOTE | 2020-10-12 22:17 | CON ---
DATE OF CONSULTATION: 10/12/2020 REASON FOR CONSULTATION: Renal mass. HISTORY: Mr. Bettencoutr is an 89-year-old gentleman with congestive heart failure, who presented to the hospital on 10/10/2020 with exacerbation of CHF resulting in dyspnea. He has been in the hospital since then, receiving fluid restriction and diuresis, and his breathing has improved, although oxygen requirements are still higher than baseline. As part of his workup, a CT scan was performed. On CT scan, he has a left renal mass approximately 3 cm in size consistent with a renal cell carcinoma. It is in the lower pole. The patient denies any prior renal issues. He denies any gross hematuria or stone disease. He denies prior urologic surgery. PAST MEDICAL HISTORY: Congestive heart failure, history of CVA, history of BPH, although he denies surgical therapy, history of chronic kidney disease, atrial fibrillation, coronary artery disease, and hyperlipidemia. PAST SURGICAL HISTORY: Appendectomy, splenectomy, cardiac stent placement, right inguinal hernia repair. FAMILY HISTORY: Noncontributory. SOCIAL HISTORY: He lives in [facility]. He has a prior history of smoking but does not smoke at this time. REVIEW OF SYSTEMS: GENERAL: Denies fever, chills, or weight loss. ENT: Denies nasal congestion. RESPIRATORY: Shortness of breath, which was his presenting complaint. GASTROINTESTINAL: Denies chronic constipation, diarrhea. GENITOURINARY: Says he voids frequently, but denies any dysuria. SKIN: No jaundice, although he has been noted to have a petechial rash on admission. NEUROLOGIC: Prior history of CVA. PHYSICAL EXAMINATION: GENERAL: He is awake, alert. He is in no distress at this time. HEENT: Normocephalic, atraumatic. He has supplemental oxygen in place. CARDIOVASCULAR: No murmurs are auscultated. RESPIRATORY: No wheezing noted. ABDOMEN: Soft, nontender. No palpable masses. Liver and spleen not palpable. No abdominal tenderness noted. EXTREMITIES: He has some bilateral extremity wounds consistent with venous stasis. IMAGING: CT scan demonstrates an approximately 3 cm lower pole left renal mass with findings consistent with renal cell carcinoma. IMPRESSION: An 89-year-old gentleman with congestive heart failure and prior CVA, admitted to the hospital for exacerbation of congestive heart failure and noted incidentally to have a 3 cm mass in the left kidney. 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 Treatment for this mass would be surgical. He is not a good candidate for any surgical therapy at this time. In addition, mass of this size can often be watched for years without any adverse consequence. I have discussed this with him. I have recommended no intervention at the current time, but plan followup imaging and reassessment of his overall medical condition in 4-6 months consideration of treatment if his medical condition has improved and the renal mass has grown significantly. RECOMMENDATIONS: Repeat CT scan in six months. The patient understands these issues and agrees with the management plan. Job ID: [id number]
[2020-10-12] MEDS: Enoxaparin Sodium 40 MG/0.4 ML SYRINGE SC SCH (22:37)
[2020-10-12] MEDS: Atorvastatin Calcium 40 MG TAB PO SCH (22:37)
[2020-10-13] MEDS: Furosemide 40 MG/4 ML VIAL SLOW IVP SCH ×2 (06:21→15:42)
--- NOTE | 2020-10-13 07:04 | PDOC.FM ---
- Subjective Subjective: Mr. Bettencourt was sleeping peacefully this AM. Per night nurse, he refused his morning lasix. - Objective Vital Signs & Weight: Vital Signs (12 hours) Temp Pulse Resp BP Pulse Ox 10/13/20 04:00 97.6 F 76 18 101/62 92 L 10/13/20 00:46 98 10/12/20 20:00 98.0 F 61 18 111/67 95 Weight Admit Weight 86.818 kg Weight 82.055 kg I&O: 10/12/20 10/13/20 10/14/20 06:59 06:59 06:59 Intake Total 960 480 Output Total 1100 1140 Balance -140 -660 Result Diagrams: 10/09/20 16:13 10/13/20 06:23 EKG Reviewed by me: Yes (tele: 7 beats Vtach, Afib 60s) Phys Exam - Physical Examination Constitutional: NAD HEENT: moist MMs, sclera anicteric Neck: no nodes Respiratory: no wheezing, no rales, no rhonchi, clear to auscultation bilateral Cardiovascular: no significant murmur irregular rhythm Gastrointestinal: soft, non-tender Musculoskeletal: no edema, pulses present chronic wounds on legs bilaterally Neurological: non-focal Psychiatric: normal affect Deviation from normal: A&Ox2 Dx/Plan - Plan Plan: Acute Hypoxic Resp Failure 2/2 CHF exacerbation -BNP 4000, CXR shows pulmonary edema, pleural effusions. COVID/Flu negative -ECHO in 08/2020 showed EF 20% -Continue 40mg IV lasix BID. Metolazone in afternoon -continue other home meds -strict I/O, daily weights -increased O2 requirement from baseline 2L, currently @ 4L NC to keep sats > 90% -monitoring on telemetry: 7 beats of Vtach -Cardiology Consult (Jazmín): Discontinued coreg and digoxin. Informed tele techs to only note pauses 5 seconds or greater. Considering pacemaker. New finding renal mass -3cm renal pole mass noted on CT -Urology Consult: Recommended repeat CT in 6 months. Treatment is surgery and patient is not a surgical candidate at this time. Moderate Cognitive Decline -Cognition evaluation by speech placed -Palliative Care Consult Dysphagia secondary to history CVA with L deficits -Approved for diet by speech Lactic Acidosis -LA 2.6, 2.3 -most likely due to poor tissue perfusion -BCx pending Petechial Rash -noted on chest and abdomen -PT 15.9, INR 1.2 Chronic leg wounds -wound care consulted Indeterminate trop, resolved -no EKG ST changes -trop 0.045, 0.05, 0.065, 0.049 Chronic Conditions: ##Afib: no anticoagulation due to high risk for falls ##CKD 3: Cr stable, 1.17 ##BPH ##HTN ##HLD ##ERD ##BPH -continue home meds CODE: FULL VTE: Lovenox DIET: HH, fluid retrisction PCP: Devang Eisenberg [place] Dispo: Continue diuresis. Possibly discharge home. Would like to see patient's oxygen requirement weaned to his baseline of 2L.
[2020-10-13 07:13] LABS: BUN (Urea Nitrogen) 24 mg/dL (8.4-25.7); Calc. Creatinine Clearance 62 mL/min (70-130); Calcium 9.1 mg/dL (7.8-10.44); Glucose 72 mg/dL (83-110)
[2020-10-13 07:22] LABS: Anion Gap 13 mmol/L (10-20); Carbon Dioxide 39 mmol/L (23-31); Chloride 91 mmol/L (98-107); Potassium 3.9 mmol/L (3.5-5.1); Sodium 139 mmol/L (136-145)
[2020-10-13] MEDS ORDERED: Furosemide 40 MG/4 ML VIAL SLOW IVP SCH (09:00)
--- NOTE | 2020-10-13 09:25 | PRG ---
DATE OF SERVICE: 10/13/2020 SUBJECTIVE: Mr. Bettencourt states his breathing is okay. He is bothered with diarrhea. His overall status looks like he is chronically debilitated. OBJECTIVE: VITAL SIGNS: Blood pressure is low 95/59 and pulse 80, it is irregular. LUNGS: Clear. CARDIAC: Irregular. ABDOMEN: Soft and nontender. EXTREMITIES: No edema. ASSESSMENT: 1. Congestive heart failure, longstanding. 2. Atrial fibrillation with a slow ventricular response, improved off digoxin. 3. Overall debilitated state. 4. Coronary artery disease, previously treated by Dr. Fede Sherman. PLAN: 1. Digoxin has been stopped, the heart rate is improved. 2. I suspect the patient may be somewhat dry now. We would stop the metolazone. 3. We would reduce diuretics as well as blood pressure is really on the low side. For some reason, the patient is not anticoagulated, chronically there may have been some contraindication that I am not aware of. He is a longstanding patient of Dr. Fede Sherman. Also, the patient is probably approaching being close to discharged. Obviously, long-term prognosis is poor. He will need to follow up with Dr. Fede Sherman long-term for other therapy. Job ID: [id number]
[2020-10-13] MEDS: Finasteride 5 MG TAB PO SCH (09:45)
[2020-10-13] MEDS: Famotidine 20 MG TAB PO SCH (09:45)
[2020-10-13] MEDS: Multivit, Therapeutic 1 TAB PO SCH (09:45)
[2020-10-13] MEDS: Aspirin 81 mg Enteric Coated Tablet PO SCH (09:45)
[2020-10-13] MEDS: AcetaZOLAMIDE 250 MG TAB PO SCH (09:45)
[2020-10-13] MEDS: Potassium Chloride 10 MEQ TAB PO SCH (09:45)
[2020-10-13] MEDS: Allopurinol 100 MG TAB PO SCH (09:46)
[2020-10-13] MEDS: Polyethylene Glycol 3350 17 GM Packet PO SCH (09:46)
[2020-10-13] MEDS: Atorvastatin Calcium 40 MG TAB PO SCH (23:22)
[2020-10-13] MEDS: Enoxaparin Sodium 40 MG/0.4 ML SYRINGE SC SCH (23:22)
[2020-10-14] MEDS: Furosemide 40 MG/4 ML VIAL SLOW IVP SCH (06:32)
[2020-10-14 07:23] LABS: BUN (Urea Nitrogen) 27 mg/dL (8.4-25.7); Calc. Creatinine Clearance 58 mL/min (70-130); Glucose 75 mg/dL (83-110)
[2020-10-14 07:24] LABS: Anion Gap 14 mmol/L (10-20); Carbon Dioxide 36 mmol/L (23-31); Chloride 90 mmol/L (98-107); Potassium 4.1 mmol/L (3.5-5.1); Sodium 136 mmol/L (136-145)
--- NOTE | 2020-10-14 08:14 | PDOC.FM ---
- Subjective Subjective: Patient is doing well this morning. He is hungry. - Objective Vital Signs & Weight: Vital Signs (12 hours) Pulse Ox 10/14/20 07:33 91 L Weight Admit Weight 86.818 kg Weight 83.2 kg I&O: 10/13/20 10/14/20 10/15/20 06:59 06:59 06:59 Intake Total 960 Output Total 1490 Balance -530 Result Diagrams: 10/09/20 16:13 10/14/20 03:30 EKG Reviewed by me: Yes (tele: Afib 70-80s, 6 beats of Vtach) Phys Exam - Physical Examination Constitutional: NAD HEENT: moist MMs, sclera anicteric Neck: no nodes, full ROM Respiratory: no wheezing, no rales, no rhonchi, clear to auscultation bilateral Cardiovascular: no significant murmur irregular rhythm Gastrointestinal: soft, non-tender Musculoskeletal: no edema, pulses present Neurological: non-focal Psychiatric: normal affect Deviation from normal: A&Ox1 Deviation from normal: chronic leg wounds Dx/Plan - Plan Plan: Acute Hypoxic Resp Failure 2/2 CHF exacerbation -BNP 4000, CXR shows pulmonary edema, pleural effusions. COVID/Flu negative. ECHO in 08/2020 showed EF 20% -strict I/O, daily weights -O2 requirement: 91% on 1L (baseline 2L) -monitoring on telemetry: 6 beats of Vtach -Cardiology Consult (Jazmín): Discontinued coreg and digoxin due to pauses. Discontinued metolazone yesterday. -Patient appears to be sufficiently diuresed. Switch to home lasix today: PO 40mg daily New finding renal mass -3cm renal pole mass noted on CT -Urology Consult: Recommended repeat CT in 6 months. Treatment is surgery and patient is not a surgical candidate at this time. Moderate Cognitive Decline -Patient evaluated and determined unable to make medical decisions. -Son is MPOA. Patient is now DNR. Dysphagia secondary to history CVA with L deficits -Approved for diet by speech Lactic Acidosis -LA 2.6, 2.3 -most likely due to poor tissue perfusion -BCx pending Petechial Rash -noted on chest and abdomen -PT 15.9, INR 1.2 Chronic leg wounds -wound care consulted Indeterminate trop, resolved -no EKG ST changes -trop 0.045, 0.05, 0.065, 0.049 Chronic Conditions: ##Afib: no anticoagulation due to high risk for falls ##CKD 3: Cr stable, 1.17 ##BPH ##HTN ##HLD ##ERD ##BPH -continue home meds CODE: FULL VTE: Lovenox DIET: HH, fluid retrisction PCP: Devang Eisenberg [place] Dispo: Patient is back on his baseline oxygen requirement of 1-2L. [facility].
[2020-10-14 08:23] VITALS: BP 103/70; TEMP 98.3
[2020-10-14] MEDS ORDERED: Furosemide 40 MG TAB PO SCH (09:00)
[2020-10-14] MEDS: Famotidine 20 MG TAB PO SCH (09:57)
[2020-10-14] MEDS: Potassium Chloride 10 MEQ TAB PO SCH (09:57)
[2020-10-14] MEDS: Finasteride 5 MG TAB PO SCH (09:57)
[2020-10-14] MEDS: Polyethylene Glycol 3350 17 GM Packet PO SCH (09:57)
[2020-10-14] MEDS: Aspirin 81 mg Enteric Coated Tablet PO SCH (09:57)
[2020-10-14] MEDS: Multivit, Therapeutic 1 TAB PO SCH (09:57)
[2020-10-14] MEDS: Allopurinol 100 MG TAB PO SCH (09:57)
[2020-10-14] MEDS: AcetaZOLAMIDE 250 MG TAB PO SCH (09:58)
--- NOTE | 2020-10-14 09:58 | PRG ---
DATE OF SERVICE: 10/14/2020 SUBJECTIVE: Mr. Bettencourt states he is breathing "75% of normal." He does not look short of breath. OBJECTIVE: VITAL SIGNS: His blood pressure is 103/70, pulse 80 and it is irregular. LUNGS: Clear. CARDIAC: Irregularly irregular. ABDOMEN: Soft, nontender. ASSESSMENT: 1. Congestive heart failure, systolic, chronic. 2. Atrial fibrillation, chronic. 3. Currently do not resuscitate status. 4. Bradycardia, resolved. Off digoxin. PLAN: 1. The patient from a cardiac standpoint can be released back to [facility] to follow up with his operational intelligence officer, Dr. Fede Sherman. 2. He is not on anticoagulation. Apparently, that is long-standing. He will need to follow up with Dr. Fede Sherman to see whether he should be considered for anticoagulation. Job ID: [id number]
--- NOTE | 2020-10-14 16:19 | PDOC.FMACP ---
Advance Care Planning - Problem (1) Palliative care encounter Status: Acute Code(s): Z51.5 - ENCOUNTER FOR PALLIATIVE CARE (2) CKD (chronic kidney disease) stage 3, GFR 30-59 ml/min Status: Chronic Code(s): N18.3 - CHRONIC KIDNEY DISEASE, STAGE 3 (MODERATE) * DO NOT USE * Qualifiers: Chronic kidney disease stage 3 subtype: stage 3a (GFR 45-59) Qualified Code(s): N18.31 - Chronic kidney disease, stage 3a (3) Cardiomyopathy Status: Chronic Code(s): I42.9 - CARDIOMYOPATHY, UNSPECIFIED Qualifiers: Cardiomyopathy type: unspecified Qualified Code(s): I42.9 - Cardiomyopathy, unspecified (4) HFrEF (heart failure with reduced ejection fraction) Status: Chronic Code(s): I50.20 - UNSPECIFIED SYSTOLIC (CONGESTIVE) HEART FAILURE (5) History of CVA (cerebrovascular accident) Status: Chronic Code(s): Z86.73 - PRSNL HX OF TIA (TIA), AND CEREB INFRC W/O RESID DEFICITS - Note Participants: family, surrogate decision-maker, palliative care Summary: Palliative care has addressed Advanced Care Planning with patient son. The diagnosis, prognosis and goals of care were discussed. Appropriate forms and documentation to accomplish the goals of care were discussed. All questions were answered. Son understanding of [place] [employer] and decision making Elected to transition to [facility] OOHDNAR prepared by Palliative Care registrar. Transition to skilled setting. Time Spent (mins): 20
--- NOTE | 2020-10-15 13:34 | DIS ---
DATE OF ADMISSION: 10/10/2020 DATE OF DISCHARGE: 10/14/2020 RESIDENT: Dimas Marvin MD DISCHARGE ATTENDING: Duran Lorenzana MD CONSULT: Cardiology, Dr. Noyola; Urology, Dr. Black; Case Management; OT/PT; Speech; and Wound Care. PROCEDURE PERFORMED: Chest x-ray on October 09 shows moderate decompensated heart failure. Abdomen and pelvis CT on October 09 shows small gallstones, left renal mass could represent a renal cell carcinoma, right renal cyst. Bilateral pleural effusions with adjacent atelectasis. PRIMARY DIAGNOSES: 1. Significant acute hypoxic respiratory failure secondary to congestive heart failure exacerbation. 2. New finding renal mass. 3. Moderate cognitive decline. SECONDARY DIAGNOSES: Dysphagia secondary to history of CVA with left deficits, lactic acidosis, chronic leg wounds, indeterminate troponin, atrial fibrillation, chronic kidney disease 3, BPH, hypertension, hyperlipidemia. DISCHARGE MEDICATIONS: 1. Finasteride 5 mg p.o. daily. 2. Aspirin 81 mg p.o. daily. 3. Potassium chloride 10 mEq p.o. daily. 4. Atorvastatin 40 mg p.o. at night. 5. Digoxin 0.125 mg p.o. daily. 6. CoQ10 one tablet p.o. daily. 7. Lasix 40mg p.o. in the morning. 8. Tylenol 1 tablet p.o. four times a day. 9. Multivitamin one tablet p.o. daily. 10. Pepcid 20 mg p.o. daily. 11. MiraLAX 17 g p.o. daily. 12. Senokot two tablets p.o. as needed. 14. Artificial Tears 1 to 2 drops in each eye as directed p.r.n. 15. Coreg 3.125 mg p.o. b.i.d. 16. Atarax 25 mg p.o. t.i.d. as needed. 17. Allopurinol 100 mg p.o. daily. 18. Entresto one each p.o. in the morning. 19. Albuterol 90 mcg p.o. p.r.n. 20. Albuterol nebulizer 2.5 mg p.o. p.r.n. Discontinued medications: None. HOSPITAL COURSE: An 89-year-old male, [facility]. He usually on 2 L of baseline, but was having increased work of breathing and tachypnea, saturating in the mid 80s on his home oxygen. EMS gave a DuoNeb with no improvement and his oxygen was bumped up to 4 L. The patient denied any cough, rhinorrhea, sinus congestion, fever, chills, or pain. The patient's BNP was found to be 4000. Chest x-ray showed pulmonary edema and pleural effusions. COVID and flu were negative. An echo performed in August 2020 showed ejection fraction of 20%. The patient was admitted for heart failure exacerbation and diuresed with IV Lasix and admitted to telemetry. While on telemetry, the patient was found to have intermittent pauses. Because of this, Cardiology was consulted. Cardiology discontinued the patient's Coreg and digoxin and said that consideration would be a pacemaker. On discharge, the patient's Coreg was restarted at 3.125 b.i.d., digoxin was discontinued indefinitely. The patient had a history of atrial fibrillation and remained in atrial fibrillation. The patient was successfully diuresed with IV Lasix and metolazone and switched to his p.o. dose of Lasix. On admission, a CT scan of abdomen and pelvis done a 3 cm renal pole mass. Urology was consulted and said the only treatment for this mass was surgery and the patient is not a surgical candidate at this time. Recommended repeat CT in 6 months. Speech evaluated the patient and determined he had moderate cognitive decline and was unable to make his own medical decisions. Son is acting as POA. The patient was placed as DNR and hospital DNR was completed. DISPOSITION: Stable. DISCHARGE INSTRUCTIONS: 1. [facility] 2. Diet: Thick nectar and chopped food. 3. Activity as tolerated. 4. Follow up with PCP in a week. Repeat Abd/pelvis CT in 6 months to evaluate changes in renal mass. Job ID: [id number] MTDD
--- NOTE | 2020-10-16 06:01 | PQF ---
CLINICAL DOCUMENTATION CLARIFICATION FORM: Dear : Martha Allred Date / Time: 10/16/2020 0601 Please exercise your independent, professional judgment in responding to the clarification form. Clinical indicators are provided on the bottom of this form for your review Please check appropriate box(es): [ ] Type 2 AL (T2MI) secondary to heart failure [ ] Demand ischemia without AL [ ] Other diagnosis, please specify: [ ] Unable to determine Physician Signature: Date/Time: For continuity of documentation, please document condition throughout progress notes and discharge summary. Thank You To be completed by CDI/Coding staff for physician review: Present Clinical Indicators - Signs / Symptoms / Labs Results and Location in Medical Record [x] BNP 4204.5, Troponin I 0.045; 0.050; 0.065 Laboratory 10/09 [x] BP 142/85, Pulse 76, Resp 22, Temp 100.2 Vital signs 10/09 [x] EKG shows Afib, ST normal, No acute findings for ischemia ED notes p9 10/09 [x] having increased work for breathing and tachypnea H&P p1 10/09 Dr vAiles [x] Acute hypoxic resp failure 2/2 CHF exacerbation H&P p5 10/09 Dr Aviles [x] Indeterminate tropononin likely demand ischemia, NSTEMI type II H&P p6 10/09 Dr Aviles [x] Possible anterior/lateral infarct, age undetermined Electrocardiogram 10/12 [x] Borderline criteria for lateral infarct are now present Electrocardiogram 10/12 Present Risk Factors Results and Location in Medical Record [x] 89 year-old Male H&P p1 10/09 Dr Aviles [x] HFeEF H&P p2 10/09 Dr Aviles [x] HTN H&P p2 10/09 Dr Aviles [x] CKD3 H&P p2 10/09 Dr Aviles [x] AFib H&P p2 10/09 Dr Aviles [x] CAD H&P p2 10/09 Dr Aviles [x] HLD H&P p2 10/09 Dr Aviles [x] Former Smoker HP 10/09 [x] Cardiomyopathy Advance care planning 10/14 Present Treatments Results and Location in Medical Record [x] IV Lasix 40 mg NOV 09 [x] Lovenox 40 mg SC NOV 09 [x] Digoxin 0.0125 mg oral NOV 09 [x] Lipitor 40 mg oral NOV 09 [x] Cardio consult Consult Dr Jazmín Barnes 10/10 [x] Aspirin 81mg Oral NOV 09 CDS/Workforce Planner Signature: Desiree Mujica Phone #: [phone] Date/Time: 10/16/20 0601 This is a permanent part of the Medical Record [facility]
--- NOTE | 2020-10-21 13:18 | EKG ---
Test Reason : Blood Pressure : / mmHG Vent. Rate : 070 BPM Atrial Rate : 326 BPM P-R Int : 000 ms QRS Dur : 160 ms QT Int : 404 ms P-R-T Axes : 000 024 191 degrees QTc Int : 436 ms Atrial fibrillation Non-specific intra-ventricular conduction block Abnormal ECG Confirmed by DESHAWN JASMINE ([id number]), graphics editor SOPHIA ALCARAZ ([id number]) on 10/21/2020 1:18:03 PM Referred By: Confirmed By:DESHAWN Braden
--- NOTE | 2020-10-21 13:18 | EKG ---
Test Reason : Blood Pressure : / mmHG Vent. Rate : 055 BPM Atrial Rate : 063 BPM P-R Int : 000 ms QRS Dur : 162 ms QT Int : 440 ms P-R-T Axes : 000 198 026 degrees QTc Int : 420 ms Atrial fibrillation with slow ventricular response Right superior axis deviation Non-specific intra-ventricular conduction block Abnormal ECG Confirmed by DESHAWN JASMINE ([id number]), managing editor SOPHIA ALCARAZ ([id number]) on 10/21/2020 1:18:08 PM Referred By: Confirmed By:DESHAWN Braden
== END 2020-10-14 15:45 | DRG 291 ==
LOC: ERS 15:37 → 2NO 17:34 → OBSVTOIN 10-10 14:49
PROVIDERS: ADMIT Student in an Organized Health Care Education/Training Program; ATTEND Student in an Organized Health Care Education/Training Program
DX: I13.0 Hypertensive heart and chronic kidney disease with heart failure and stage 1 through stage 4 chronic kidney disease, or unspecified chronic kidney disease (principal); J96.01 Acute respiratory failure with hypoxia; I50.23 Acute on chronic systolic (congestive) heart failure; E87.2 Acidosis; I47.2 Ventricular tachycardia; I69.354 Hemiplegia and hemiparesis following cerebral infarction affecting left non-dominant side; I48.20 Chronic atrial fibrillation, unspecified; C64.2 Malignant neoplasm of left kidney, except renal pelvis; L97.929 Non-pressure chronic ulcer of unspecified part of left lower leg with unspecified severity; L97.919 Non-pressure chronic ulcer of unspecified part of right lower leg with unspecified severity; Z20.822 Contact with and (suspected) exposure to COVID-19; Z66 Do not resuscitate; Z51.5 Encounter for palliative care; I42.9 Cardiomyopathy, unspecified; R23.3 Spontaneous ecchymoses; N18.30 Chronic kidney disease, stage 3 unspecified; N40.0 Benign prostatic hyperplasia without lower urinary tract symptoms; R13.10 Dysphagia, unspecified; E78.5 Hyperlipidemia, unspecified; K80.20 Calculus of gallbladder without cholecystitis without obstruction; I07.1 Rheumatic tricuspid insufficiency; I25.10 Atherosclerotic heart disease of native coronary artery without angina pectoris; R00.1 Bradycardia, unspecified; I49.1 Atrial premature depolarization; Z79.899 Other long term (current) drug therapy; I69.391 Dysphagia following cerebral infarction; Z90.49 Acquired absence of other specified parts of digestive tract; Z87.891 Personal history of nicotine dependence; Z95.5 Presence of coronary angioplasty implant and graft; Z79.82 Long term (current) use of aspirin; Z90.81 Acquired absence of spleen
CPT/HCPCS: 0240U; 36415; 71045; 74177; 80048; 80053; 82553; 83605; 83735; 83880; 84484; 85025; 85610; 85730; 87040; 93005; 93010; 94760; 96374; 96375; 96376; G0378; J1650; J1885; J1940; Q9967